=== PATIENT | male | born 1950 | race Caucasian/White ===

== ENCOUNTER 2020-01-07 08:40 | Outpatient (CLI) | payer MEDICARE, OTHER, SELFPAY ==
--- NOTE | ~2020-01-07 | CT_ITS ---
EXAMINATION: CT chest abdomen pelvis w con DATE: 01/07/2020 09:49 INDICATION: Metastatic prostate cancer TECHNIQUE: Transaxial computed tomographic images of the chest, abdomen, and pelvis were obtained aft er the administration of 100 cc of Omnipaque 350 intravenous contrast. The dose-length product (DLP) was 333.36 mGy-cm. Automated exposure control and iterative reconstruction technique were employed. COMPARISON: 07/04/2019 FINDINGS: CHEST CT: There is mild emphysema. The lungs are free of acute opacities. There is no pleural effusion or pneum othorax. No pathologically enlarged thoracic lymph nodes are identified. The heart size is normal. Ca lcified coronary artery atherosclerosis is noted. There are osseous metastases of the right seventh r ib, the inferior tip of the right scapula, the left fourth rib, and the left aspect of the T12 verteb ral body. ABDOMEN/PELVIS CT: There are multiple new ill-defined liver masses scattered throughout the liver. The largest measures 9.9 x 6.8 cm in the liver dome. The spleen, pancreas, and adrenal glands are normal. There are multip le simple and complex cysts of the kidneys. The largest measures 4.5 cm on the left. There is calcifi ed atherosclerosis of the aorta and many of the other arteries. Previously described pelvic lymphaden opathy continues to decrease. For instance, a 3.6 x 1.3 cm right obturator lymph node previously olegario ured 4.3 x 2.7 cm. There is no free intraperitoneal gas or evidence of bowel obstruction. Colonic div erticulosis is present without evidence of diverticulitis. Circumferential bladder wall thickening li alyson reflect chronic outlet obstruction. Osseous metastatic disease of the right ilium, sacrum, and l umbar spine is again seen with worsening in the lumbar spine. IMPRESSION: 1. Worsening osseous metastatic disease. 2. Multiple new masses throughout the liver, consistent with metastatic disease. 3. Continued improvement in pelvic lymphadenopathy. Reviewed, dictated and finalized at location B. IMPRESSION: 1. Worsening osseous metastatic disease. 2. Multiple new masses throughout the liver, consistent with metastatic disease . 3. Continued improvement in pelvic lymphadenopathy.
--- NOTE | ~2020-01-07 | NM_ITS ---
EXAMINATION: NM bone scan whole body DATE: 01/07/2020 13:02 INDICATION: Prostate cancer metastatic to bone. TECHNIQUE: 25.4 mCi Tc-99m HDP was administered intravenously. Delayed whole-body scintigrams were o btained. COMPARISON: CT chest, abdomen, and pelvis 01/07/2020, bone scan 04/19/2019 FINDINGS: There is a total right knee arthroplasty. There is increased activity in multiple lumbar ve rtebral bodies and lower thoracic vertebral bodies. There is increased activity in right parasymphyse al pubis. There is increased activity in right 10th rib. There is increased activity in left fourth r ib. These findings correlate with sclerotic lesions by CT. There is increased activity in proximal le ft femoral diaphysis without radiographic comparison. There has been improvement in the previously se en increased activity in right acetabulum. There is a focus of increased activity in the superior sku ll without radiographic comparison. IMPRESSION: 1. Worsened distribution of bone lesions, consistent with metastatic disease. Reviewed, dictated and finalized at location A.
== END 2020-01-07 08:41 | disposition home or self-care (01) ==
PROVIDERS: PCP Family Medicine; Visit Provider Internal Medicine Hematology & Oncology
DX: C79.51 Secondary malignant neoplasm of bone (principal); R91.8 Other nonspecific abnormal finding of lung field
CPT/HCPCS: 71260; 74177; 78306; A9561; Q9967

== ENCOUNTER 2020-01-27 00:49 | Day surgery (SDC) | payer MEDICARE, OTHER, SELFPAY ==
[2020-01-26 14:34] VITALS: BMI 19.9
--- NOTE | 2020-01-26 18:06 | WPDANESEPP ---
Anes - Eval Pre Procedure Procedure: Operation Date: 01/27/20 07:30 Proposed Procedures p Insertion Leander Cath - Nkechi Acosta MD Date/Time: 01/26/20 18:06 Pre Op Diagnosis: Prostate Ca Patient Data Age: 69 Gender: M Height: 5 ft 8 in Weight: 59.42 kg Allergies Allergy/AdvReac Type Severity Reaction Status Date / Time clopidogrel [From Plavix] Allergy Unknown Rash Verified 01/26/20 14:34 Home Medications Medication Instructions Recorded Confirmed Type aspirin 325 mg PO DAILY 07/16/19 01/26/20 History enzalutamide 120 mg PO DAILY 07/16/19 01/26/20 History pravastatin 80 mg PO HS 07/16/19 01/26/20 History calcium carbonate-vitamin D3 600 1 cap PO BID cap 08/09/19 01/26/20 History mg calcium-200 unit capsule diphenoxylate-atropine 2.5 1 tablet PO TID PRN #45 tablet 10/11/19 01/26/20 Rx mg-0.025 mg tablet metoprolol tartrate 25 mg tablet 25 mg PO BID tablet 10/13/19 01/26/20 History vit C 250 mg-E 200 unit-zinc 40 1 tablet PO BID 10/13/19 01/26/20 History mg-copper 1 tk-bgtwsp-yecozk capsule lisinopril 10 mg tablet 20 mg PO DAILY 11/01/19 01/26/20 History cholestyramine (with sugar) 4 gram 4 g PO BID #60 each 11/18/19 01/26/20 Rx powder for susp in a packet potassium chloride 20 mEq 20 meq PO DAILY 30 Days #30 tablet 12/28/19 01/26/20 Rx tablet,extended release hydrocodone-acetaminophen 1 tablet PO QID PRN 01/26/20 01/26/20 History morphine 15 mg PO HS 01/26/20 01/26/20 History Patient hx anesthesia problems: none Family hx anesthesia problems: none PMFSH Past Medical History Medical History Cancer, metastatic to bone Chronic anemia Coronary artery disease involving [place] coronary artery of [place] heart Decreased appetite Depression Diarrhea Hyperlipidemia Hypertensive heart disease without congestive heart failure Malignant neoplasm of prostate PVD (peripheral vascular disease) Surgical History Surgical History History of cardiac catheterization in 2002 with stents placed S/P total knee arthroplasty right knee S/P TURP October 2016 Family History Family History Father Family history of cardiovascular disease Malignant neoplasm of prostate Mother Family history of cardiovascular disease COPD (chronic obstructive pulmonary disease) CHF (congestive heart failure) Social History Social History Years smoked: 30 Smoking status: Current some day smoker Tobacco type: cigarettes Second hand tobacco smoke exposure: No Additional smoking assessment comments: Smoked approximately 1 pack of cigarettes per week for 30 years previously Alcohol intake: never Substance use: never Substance use type: does not use Additional living arrangements comments: Patient remains a full code. He does live with his daughter and son-in-law. His daughter is his emergency contact. He reports he has not designated an official POA at this point but would like to do so. Gender identity (if verbalized by the patient): Male Spiritual care concerns: No Agree to blood products: No Exam Day of Procedure 01/26/20 18:06
--- NOTE | ~2020-01-27 | XR_ITS ---
EXAMINATION: XR fl guide central line place DATE: 01/27/2020 08:19 INDICATION: Port placement. TECHNIQUE: 2 intraoperative fluoroscopic views of the chest were obtained. I was not present. Fluoros copy exposure time was 12 seconds. COMPARISON: Chest CT 01/07/2020 FINDINGS: There is a left subclavian port with tip at superior cavoatrial junction. No pneumothorax. IMPRESSION: 1. Port tip at superior cavoatrial junction. Reviewed, dictated and finalized at location A.
--- NOTE | ~2020-01-27 | XR_ITS ---
EXAMINATION: XR chest port-a-cath/central DATE: 01/27/2020 08:38 INDICATION: Port placement. TECHNIQUE: A single frontal view of the chest was obtained. COMPARISON: Chest single view 08/30/2019, chest CT 01/07/2020 FINDINGS: The chest demonstrates clear lungs without pneumonia, pleural effusion, or pneumothorax. Th e heart size is normal. A 12 mm nodule overlying right lower lung zone correlates with an exophytic s kin lesion by CT. There is a left subclavian port with tip in superior vena cava. There is deviation of the catheter between the clavicle and first rib. IMPRESSION: 1. Port tip in superior vena cava. No pneumothorax. Reviewed, dictated and finalized at location A.
[2020-01-27] MEDS: LACTATED RINGERS 1,000 ML 30 ML IV CONT (06:30)
[2020-01-27 06:38] VITALS: BP 139/66; PULSE 62; RESP 18; TEMP 36.2; O2SAT 100
[2020-01-27 06:52] LABS: INR 1.1; Prothrombin Time 13.7 Seconds (11.1-14.7)
[2020-01-27 06:53] LABS: Partial Thromboplastin Time 41.4 SECONDS (22.3-36.8)
--- NOTE | 2020-01-27 07:04 | WPDANESEFPP ---
Anes - Eval Final PreProcedure Day of Procedure 01/27/20 07:04 Patient weight: normal Heart: regular rate and rhythm Lungs: decreased breath sounds Airway: Mallampati scale class II Neurological: alert and oriented Last oral intake: >/= 8 hours ASA classification: IV Emergent: no Anesthetic plan: proceed Anesthesia type and monitoring: general GIVS and standard monitoring Informed Consent: The patient's anesthetic plan and its attendant risks and benefits were discussed with the patient/family/POA. Questions were solicited and answers provided to the satisfaction of the patient/family/POA.
--- NOTE | 2020-01-27 07:23 | PM.IMHP ---
H&P: HPI History of Present Illness Chief complaint: Prostate Ca Narrative: Urbano Guerra is a 69 year old male presenting for placement of port. Pt reports he is having port placed for chemotherapy due to prostate cancer. Pt denies having central venous catherterization in the past. Pt is R handed. Review of Systems Constitutional: Constitutional: Denies chills, Reports fatigue, Reports lethargy and Reports weakness Eyes: Eyes: Reports no additional eye complaints and Denies change in vision ENT: Reports Normal hearing present, Denies dysphagia, Denies headache(s), Denies hearing loss and Denies sore throat Cardiovascular: Cardiovascular: Denies chest pain, Denies palpitations and Denies dyspnea Respiratory: Respiratory: Denies cough and Denies dyspnea Gastrointestinal: Gastrointestinal: Denies abdominal pain, Denies change in stool character, Denies constipation, Denies diarrhea, Denies nausea and Denies vomiting Genitourinary: Genitourinary: Denies dysuria, Denies urinary frequency and Denies urinary urgency Musculoskeletal: Musculoskeletal: Reports no additional musculoskeletal complaints Integumentary/Breasts: Skin/Breast: Denies pruritus, Denies lesions and Denies wounds Neurologic: Denies confusion and Denies headache(s) Psychiatric: Psychiatric: Reports no additional psychiatric complaints and Denies confusion Endocrine: Endocrine: Reports no additional endocrine complaints, Denies fatigue and Denies palpitations Hematologic/Lymphatic: Hematologic/Lymphatic: Reports no additional hematologic/lymphatic complaints Allergic/Immunologic: Allergic/Immunologic: Reports no additional allergic/immunologic complaints PMFSH Past Medical History Medical History Cancer, metastatic to bone Chronic anemia Coronary artery disease involving [place] coronary artery of [place] heart Decreased appetite Depression Diarrhea Hyperlipidemia Hypertensive heart disease without congestive heart failure Malignant neoplasm of prostate PVD (peripheral vascular disease) Surgical History Surgical History History of cardiac catheterization in 2002 with stents placed S/P total knee arthroplasty right knee S/P TURP October 2016 Family History Family History Father Family history of cardiovascular disease Malignant neoplasm of prostate Mother Family history of cardiovascular disease COPD (chronic obstructive pulmonary disease) CHF (congestive heart failure) Social History Social History Years smoked: 30 Smoking status: Current some day smoker Tobacco type: cigarettes Second hand tobacco smoke exposure: No Additional smoking assessment comments: Smoked approximately 1 pack of cigarettes per week for 30 years previously Alcohol intake: never Substance use: never Substance use type: does not use Additional living arrangements comments: Patient remains a full code. He does live with his daughter and son-in-law. His daughter is his emergency contact. He reports he has not designated an official POA at this point but would like to do so. Gender identity (if verbalized by the patient): Male Spiritual care concerns: No Agree to blood products: No Meds Home Medications and Allergies Home Medications Medication Instructions Recorded Confirmed Type aspirin 325 mg PO DAILY 07/16/19 01/27/20 History enzalutamide 120 mg PO DAILY 07/16/19 01/27/20 History pravastatin 80 mg PO HS 07/16/19 01/27/20 History calcium carbonate-vitamin D3 600 1 cap PO BID cap 08/09/19 01/27/20 History mg calcium-200 unit capsule diphenoxylate-atropine 2.5 1 tablet PO TID PRN #45 tablet 10/11/19 01/27/20 Rx mg-0.025 mg tablet metoprolol tartrate 25 mg tablet 25 mg PO BID tablet 10/13/19 01/27/20 History
[2020-01-27] MEDS: HEPARIN SODIUM, PORCINE 10,000 UNITS/10 ML VIAL 4000 UNITS IV PUSH (07:39)
[2020-01-27] MEDS: ceFAZolin 2 GM/D5W 50 ML 2 GM/50 ML BAG IVPB (07:39)
[2020-01-27] MEDS: HEPARIN SODIUM 5,000 UNITS/ML VIAL 5000 UNITS IRRIGATION (07:39)
[2020-01-27] MEDS: BUPIVACAINE/EPINEPHRINE 0.5% 30 ML VIAL 20 ML INFILTRATE (07:39)
--- NOTE | 2020-01-27 08:17 | PM.PROC ---
Procedure Note - Detailed Date of procedure: 01/27/20 Pre-op diagnosis: Prostate Ca Post-op diagnosis: same Procedure performed: placement of left subclavian venous access device under fluroscopic guidance Description of procedure: Patient was brought into the operating room and placed in the supine position. After adequate induction of mac anesthesia, the patient was prepped and draped in normal sterile fashion. Time-out was then done to verify the patient's identity, as well as the procedure being performed. I began by making a small incision in the left chest, I then gained access into the left subclavian vein with an 18 gauge needle. I then placed the guidewire into the vein and confirmed placement via fluoroscopic guidance. I then locally anesthetized the area in the left chest. I then enlarged the incision around the guidewire including making a subcutaneous pocket inferiorly to allow placement of the port itself. I then placed a dilating sheath over the guidewire into the left subclavian vein via sterile Seldinger technique. This was once again done and confirmed via fluoroscopic guidance. I then removed the dilator and the guidewire, now just leaving the sheath in the vein. I then fed the previously flushed catheter into the left subclavian vein under fluoroscopic guidance. At approximately 20 cm, the catheter was noted to be near the atrial caval junction. I then peeled away the sheath, now just leaving the catheter in the vein. I then was able to easily draw and flush from the catheter. The catheter was cut to fit and attached to the port itself. The port was placed into the previously made subcutaneous pocket and sutured in with 0 Ethibond suture. Final fluoroscopic view showed the termination of the catheter at the atrial caval junction with a nice smooth curvature back to the port itself. I was able to gain access to the port with a Bush needle and was able to easily draw and flush from the port. I then flushed 4 cc of a final heparin flush into the port. The incision was closed with 3 0 Vicryl suture in the subcutaneous tissue and the skin was closed with 4 O Monocryl subcuticular suture. Dermabond was then placed on wound. The patient tolerated the procedure well and will be sent to the recovery room in stable condition. Implants: L SCV VAD Anesthesia: MAC and local Surgeon: Nkechi Acosta MD Estimated blood loss (mL): 5 Drains: No Packing: No Pathology: none sent Complications: No immediate complications Condition: stable Disposition: PACU Findings: placement of L SCV VAD via 1st stick
--- NOTE | 2020-01-27 08:18 | SUR.OPER ---
EBL:10cc
[2020-01-27 08:23] VITALS: BP 165/64; PULSE 67; RESP 18; TEMP 36.4; O2SAT 100
[2020-01-27 08:53] VITALS: BP 156/67; PULSE 67; RESP 18; O2SAT 99
[2020-01-27 09:23] VITALS: BP 156/60; PULSE 65; RESP 18
== END 2020-01-27 09:37 | disposition home or self-care (01) ==
PROVIDERS: PCP Family Medicine; Visit Provider Surgery
PROC: (CPT 36561; principal; 2020-01-27 07:30)
DX: C61 Malignant neoplasm of prostate (principal); C79.51 Secondary malignant neoplasm of bone; I25.10 Atherosclerotic heart disease of native coronary artery without angina pectoris; E78.5 Hyperlipidemia, unspecified; I73.9 Peripheral vascular disease, unspecified; D64.9 Anemia, unspecified; F32.9 Major depressive disorder, single episode, unspecified; Z95.5 Presence of coronary angioplasty implant and graft; Z79.82 Long term (current) use of aspirin; F17.210 Nicotine dependence, cigarettes, uncomplicated
CPT/HCPCS: 36561; 36415; 77001; 85610; 85730; C1788; J0690; J1644; J2250; J2704; J3010; J7030; J7120

== ENCOUNTER 2020-04-29 14:44 | Inpatient (IN) | payer MEDICARE, OTHER, SELFPAY ==
--- NOTE | ~2020-04-29 | XR_ITS ---
XR chest 1V portable 04/29/2020 15:25 Indication: History of hypertension. Coronary artery disease. Procedure: AP portable chest Comparison: 07/05/2019 Findings: Portacatheter tip in the SVC. Heart size normal. No focal air space disease, pulmonary you a, pleural effusion or suspected pneumothorax. Impression: 1: No acute cardiopulmonary disease. Reviewed, dictated and finalized at location A. Impression: 1: No acute cardiopulmonary disease.
--- NOTE | ~2020-04-29 | CT_ITS ---
EXAMINATION: CT abdomen pelvis wo con DATE: 05/06/2020 10:22 INDICATION: Hypotension. Right-sided abdominal pain. TECHNIQUE: Computed tomography (CT) of the abdomen and pelvis was performed without intravenous contr ast. The dose-length product was 415.31 mGy-cm. Automated exposure control and iterative reconstructi on technique were employed. COMPARISON: CT dated 01/07/2020 FINDINGS: Right lower lobe atelectasis. No significant pleural or pericardial effusion. Heart size no rmal. There are multiple ill-defined liver masses, consistent with metastatic disease. There is ascit es throughout the abdomen and pelvis. Nonobstructive bowel gas pattern. There are low-density lesions in the kidneys, most likely cysts. There is atherosclerosis. There is abdominal aortic ectasia aorta measuring 2.8 cm greatest AP dimension. Gallbladder is present. No free air identified. There is pat zackary extensive sclerosis throughout the visualized osseous structures, compatible with metastatic dise ase. There is retroperitoneal lymphadenopathy, likely metastatic disease. IMPRESSION: 1. Extensive liver metastases. Interval change difficult to evaluate due to lack of contrast. 2: Widespread osseous metastases. 3: Interval development of ascites and diffuse subcutaneous edema, consistent with anasarca. 4: Retroperitoneal lymphadenopathy, likely metastatic disease. Reviewed, dictated and finalized at location I. IMPRESSION: 1. Extensive liver metastases. Interval change difficult to evaluate due to lac k of contrast. 2: Widespread osseous metastases. 3: Interval development of ascites and diffuse subcutaneous edema, consistent w ith anasarca. 4: Retroperitoneal lymphadenopathy, likely metastatic disease.
--- NOTE | ~2020-04-29 | US_ITS ---
EXAMINATION: US venous doppler LE EXAM DATE: 05/02/2020 16:20 INDICATION: Bilateral leg swelling. TECHNIQUE: Multiple grayscale, color flow and Doppler images of the lower extremity deep venous syste ms bilaterally were obtained and reviewed. Comparison is made to prior examination from 11/12/2018. FINDINGS: Right side: The right common femoral, femoral and profunda veins demonstrate normal color flow, respi ratory variation, augmentation and compressibility. Compressibility, color flow confirmed within the right popliteal, posterior tibial, peroneal, and greater saphenous veins. Left side: The left common femoral, femoral and profunda veins demonstrate normal color flow, respira tory variation, augmentation and compressibility. Compressibility, color flow confirmed within the l eft popliteal, posterior tibial, peroneal, and greater saphenous veins. IMPRESSION: 1. No lower extremity deep venous thrombosis bilaterally. Reviewed, dictated and finalized at location A.
--- NOTE | ~2020-04-29 | XR_ITS ---
EXAMINATION: XR chest 1V portable DATE: 05/07/2020 11:25 INDICATION: Decreased breath sounds. Sepsis. TECHNIQUE: frontal view of the chest was obtained. COMPARISON: Chest radiograph dated 04/29/2020 FINDINGS: Mild elevation of the right hemidiaphragm. The lungs remain clear with no focal airspace opacities, p ulmonary edema, pleural effusion or pneumothorax. The cardiomediastinal silhouette is normal. Left branch bclavian central venous port catheter with distal tip at the caudal superior vena cava. There is a sl ight change in course of the catheter were passed between the clavicle and first rib but without evid ent flattening or sharp angulation of the catheter. IMPRESSION: 1. No acute cardiopulmonary disease. Reviewed, dictated and finalized at location A.
--- NOTE | ~2020-04-29 | US_ITS ---
EXAMINATION: US arterial duplex LE DATE: 05/05/2020 11:32 INDICATION: Severe peripheral vascular disease TECHNIQUE: Multiple grayscale and Doppler ultrasound images of the region of the bilateral lower lowe r limbs were obtained. COMPARISON: None FINDINGS: In the right lower limb there are monophasic waveforms with brisk systolic upstrokes in the right com mon femoral, profunda femoral, superficial femoral, popliteal and posterior tibial arteries. There is scattered nonhemodynamically significant atherosclerotic plaque throughout the arteries of the right lower limb but with no significant stenosis either directly visualized by grayscale imaging or by si gnificant localized peak systolic velocity elevation or decrease to suggest hemodynamically significa nt stenosis. The anterior tibial artery is not visualized however is likely occluded as there is reve rsal of flow in the right dorsalis pedis artery. Subcutaneous edema seen at the right calf. The left lower limb there are triphasic waveforms in the left common femoral, profunda femoral arteri es with monophasic waveforms more distally with brisk systolic upstrokes throughout dorsalis pedis ar sriram. Similarly there is extensive scattered atherosclerotic plaque which does not appear hemodynamic ally significant either by grayscale or color Doppler velocity criteria. Subcutaneous edema seen at t he left calf. Cardiac arrhythmia is present with occasional dropped beats suggestive of some degree of heart block. IMPRESSION: 1. Extensive scattered atherosclerotic plaque throughout the arteries of both the left and right lowe r limbs with reversal of flow in the right dorsalis pedis arteries suggesting occlusion of the more p roximal nonvisualized right anterior tibial artery. 2. No other hemodynamically significant stenosis in the visualized arteries of either lower limb eith er by direct grayscale visualization or as evidenced by significant focal elevation or decrease in pe ak systolic velocities. Reviewed, dictated and finalized at location A. IMPRESSION: 1. Extensive scattered atherosclerotic plaque throughout the arteries of both t he left and right lower limbs with reversal of flow in the right dorsalis pedis arteries suggesting occlusion of the more proximal nonvisualized right anterio r tibial artery. 2. No other hemodynamically significant stenosis in the visualized arteries of either lower limb either by direct grayscale visualization or as evidenced by s ignificant focal elevation or decrease in peak systolic velocities.
[2020-04-29 14:50] VITALS: BP 125/52; PULSE 75; RESP 12; TEMP 36.2; O2SAT 99
--- NOTE | 2020-04-29 14:59 | ED.GENADULT ---
HPI - General Adult General Chief complaint: Unspecified Stated complaint: swollen feet Time Seen by Provider: 04/29/20 14:47 History of Present Illness HPI narrative: 69 yo male w/ h/o stage prostate cancer presents for lower extremitiy swelling. He has had increasing swelling in the feet bilaterally for several days. As the swelling has increased his feet have become very painful and started weeping. He now has areas of skin sloughing and significant drainage. He was started on PO diuretics, but they have had little effect. He is not currently getting any treatment for the cancer. Related Data Home Medications Medication Instructions Recorded Confirmed aspirin 325 mg PO DAILY 07/16/19 04/12/20 pravastatin 80 mg PO HS 07/16/19 04/12/20 calcium carbonate-vitamin D3 600 1 cap PO TID cap 08/09/19 04/12/20 mg calcium-200 unit capsule metoprolol tartrate 25 mg tablet 25 mg PO BID tablet 10/13/19 04/12/20 vit C 250 mg-E 200 unit-zinc 40 1 tablet PO BID 10/13/19 04/12/20 mg-copper 1 vt-yhpywp-nzcfur capsule lisinopril 10 mg tablet 20 mg PO DAILY 11/01/19 04/12/20 hydrocodone-acetaminophen 1 tablet PO QID PRN 01/26/20 04/12/20 morphine 15 mg PO HS 01/26/20 04/12/20 ferrous sulfate 324 mg PO DAILY 03/14/20 04/12/20 Allergies Allergy/AdvReac Type Severity Reaction Status Date / Time clopidogrel [From Plavix] Allergy Unknown Rash Verified 04/29/20 14:55 Review of Systems Review of Systems: All systems reviewed & are unremarkable except as noted in HPI and below Constitutional: Constitutional: Denies fever(s) Cardiovascular: Cardiovascular: Denies chest pain Respiratory: Respiratory: Denies dyspnea Gastrointestinal: Gastrointestinal: Denies abdominal pain, Denies nausea and Denies vomiting Genitourinary: Genitourinary: Denies dysuria Neurologic: Denies numbness and Reports weakness PMFSH Past Medical History Medical History Cancer, metastatic to bone Chronic anemia Coronary artery disease involving [place] coronary artery of [place] heart Decreased appetite Depression Diarrhea Hyperlipidemia Hypertensive heart disease without congestive heart failure Malignant neoplasm of prostate PVD (peripheral vascular disease) Surgical History Surgical History History of cardiac catheterization in 2002 with stents placed S/P total knee arthroplasty right knee S/P TURP October 2016 Family History Family History Father Family history of cardiovascular disease Malignant neoplasm of prostate Mother Family history of cardiovascular disease COPD (chronic obstructive pulmonary disease) CHF (congestive heart failure) Social History Social History Years smoked: 30 Smoking status: Current some day smoker Tobacco type: cigarettes Second hand tobacco smoke exposure: No Additional smoking assessment comments: Smoked approximately 1 pack of cigarettes per week for 30 years previously Alcohol intake: never Substance use: never Substance use type: does not use Additional living arrangements comments: Patient remains a full code. He does live with his daughter and son-in-law. His daughter is his emergency contact. He reports he has not designated an official POA at this point but would like to do so. Gender identity (if verbalized by the patient): Male Spiritual care concerns: No Agree to blood products: No Exam Const: General: no acute distress, alert and ill appearing chronically Orientation/consciousness: patient oriented x3 Other: chacectic HENMT: Head: normal to inspection Neck: Neck: normal visual inspection and no lymphadenopathy Chest: Chest palpation & inspection: no tenderness Resp: Effort & Inspection: normal respiratory effort Auscultation:
[2020-04-29 15:13] LABS: Basophils Percent Auto 0.1 % (0.2-1.2); Eosinophils Percent Auto 0.1 % (0-4.4); Hemoglobin 10.5 g/dL (14.0-18.0); Immature Granulocyte Absolute 0.09 K/mm3 (0.00-0.031); Immature Granulocyte Percent A 0.6 % (0-0.5); Lymphocytes Absolute Auto 0.61 K/mm3 (0.9-3.2); Lymphocytes Percent Auto 4.3 % (18.3-44.2); Mean Corpuscular HGB Conc 30.9 g/dl (32-36); Mean Corpuscular Hemoglobin 27.1 pg (26-34); Mean Corpuscular Volume 87.9 fl (80-100); Mean Platelet Volume 10.8 fl (7.4-10.4); Monocytes Absolute Auto 0.5 K/mm3 (0.1-0.6); Monocytes Percent Auto 3.8 % (2.6-8.5); Neutrophils Absolute Auto 12.9 K/mm3 (1.3-6.7); Neutrophils Percent Auto 91.1 % (45.5-73.1); Platelet Count Result 430 k/mm3 (150-375); Red Blood Count 3.87 M/mm3 (4.6-6.20); Red Cell Distribution Width 21.2 % (11.5-14.5); White Blood Count 14.2 K/mm3 (4.5-10.0)
[2020-04-29 15:22] LABS: INR 1.3; Prothrombin Time 15.8 Seconds (11.1-14.7)
[2020-04-29 15:23] LABS: Partial Thromboplastin Time 30.9 SECONDS (22.3-36.8)
[2020-04-29 15:29] LABS: Alanine Aminotransferase 24 U/L (4-50); Albumin Level 3.3 g/dL (3.5-5.1); Alkaline Phosphatase 617 U/L (38-126); Anion Gap 14.3 mmol/L (7-16); Aspartate Amino Transferase 32 U/L (17-59); Bilirubin,Total 0.5 mg/dL (0.2-1.3); Blood Urea Nitrogen 31 mg/dL (9-20); CRP 6.2 mg/dL (<1.0); Calcium 8.4 mg/dL (8.4-10.2); Carbon Dioxide 24 mmol/L (22-30); Chloride 101 mmol/L (98-107); Estimated CRCL calculation 48 ml/min; Estimated Glomerular Filt Rate > 60; Glucose 101 mg/dL (75-110); Potassium 3.3 mmol/L (3.4-5.0); Sodium 136 mmol/L (137-145)
[2020-04-29] MEDS: FUROSEMIDE INJ 40 MG/4 ML VIAL IV PUSH ×2 (15:31→20:34)
[2020-04-29 15:34] LABS: NT Pro B Type Natriuretic Pept 2700 PG/ML (5-100)
[2020-04-29] MEDS: MORPHINE SULFATE 4 MG/ML INJ IV PUSH ×3 (15:43→20:33)
[2020-04-29 17:07] LABS: Lactic Acid Reflex 2.4 mmol/L (0.7-2.1)
--- NOTE | 2020-04-29 17:07 | PC.NURSE ---
Patient's leg repositioned and chucks pad change per request of daughter due to saturation of pad. Patient's leg gently washed with saline irrigation fluid and patted dry. Patient turned onto left hip at this time
[2020-04-29 17:09] VITALS: BP 121/50; PULSE 72; O2SAT 98
--- NOTE | 2020-04-29 18:05 | PC.NURSE ---
This patient, Urbano Guerra, was admitted to [facility] Surg Room 311-01. Patient/family oriented to hospital policies and general routines including ID bracelet, bed and alarms, visiting hours, pain management, procedures, bathroom and other care routines, personal items, smoking policy, room service/diet, and visiting hours. Valuables list has been completed. Information on how to activate the Rapid Response Team has been discussed. Patient/Family are encouraged to report perceived risks to care and to ask questions if they do not understand what they are told or what they should do.
[2020-04-29 18:27] VITALS: BMI 18.8
[2020-04-29 19:14] VITALS: BP 98/51; PULSE 66; RESP 18; TEMP 36.4; O2SAT 98
[2020-04-29 19:54] LABS: Reflex Lactic Acid Yes or No Add Lactic
[2020-04-29 20:25] LABS: Lactic Acid 1.9 mmol/L (0.7-2.1)
[2020-04-29 22:00] VITALS: BP 126/69; PULSE 60; RESP 16; TEMP 36.2; O2SAT 96
--- NOTE | 2020-04-29 23:51 | PM.IMHP ---
H&P: HPI History of Present Illness Date/Time: 04/29/20 23:51 Chief complaint: Lower extremity cellulitis/lower extremity edema Narrative: Urbano Guerra is a 69 year old male Who has a history of stage IV prostate cancer that metastasized to the lymph nodes the liver and the bones. The patient was getting politics radiation but is stop that. He sees Dr. santo for his oncology needs. The patient had been on chemotherapy but became very weak and could not tolerate the chemotherapy. The patient's chemotherapy is on hold at this time and patient may start up on a lower dose chemotherapy. The ER physician did evaluate the patient and noted that the patient had a blue purple color to his left lower foot. Patient has severe edema to lower extremities which the patient stated started about 1 week ago. The patient had been on prednisone which could cause the patient to retain water. The patient was diagnosed with localized prostate cancer October 2015 status post of a TURP and watchful waiting. Patient also has B12 deficiency iron deficiency and anemia from chemotherapy. The patient had been on Taxotere that started February 01, 2020 but has been fatigued and could not tolerate that dose. He had polyp to have radiation therapy to the bone that he completed on June 24, 2019. He also had been on androgen deprivation therapy with Casodex December 01, 2018. The patient had a right inguinal lymph node ultrasound-guided biopsy done that showed metastatic cancer patient had been started on Xtandi and discontinued January 30 of this year. Lupron was discontinued January 04, 2020. Patient has increased pain and has been taking Grover for the discomfort. We had a very long discussion about the bluish color to the left foot. The patient stated that he had arterial Dopplers in the past and he is aware that he has some arterial insufficiency. We had to Doppler his pulses his left foot is cold to touch and very difficult to find a a pulse even with the Dopplers. The patient will not allow me to do any venous or arterial Dopplers. He was made aware that he is at risk for DVTs since he has cancer. Patient is in a lot of pain in just once his pain medication and is not concerned about his foot at this time. I explained that he could have some vasculitis. The patient stated that he was told that he has an infection is foot and that antibiotics will get rid of this. Patient is not wanting to be transferred to another facility where they have a vascular surgeon. He is refusing any further vascular Dopplers. He does not want any arterial venous Dopplers performed at this time. We could do a D-dimer but it will be elevated most likely due to his cancer. The last time he was seen by his oncologist was 04/12/2020. Under the skin assessment there was no lumps bumps or rashes noted at that time. There was no note of any edema or lymphedema or lymphadenopathy at that time. The patient tells me that this swelling just got worse about 1 week ago. He thinks that is about the time he was started on steroids. I have spent over an hour with this gentleman explaining code status and the condition of his left foot. The patient does not want to be transferred to vascular surgeon at this time the night. Explained that it would be his best interest to be evaluated for his vascular system. However the patient does have metastatic cancer and states that it may not be worth it to have a workup on his vascular system. However we discussed code status and his daughter is the durable power employee benefits attorney for healthcare. And he would want us to fully resuscitate him if his heart stops. He stated that he wanted to try the antibiotics any feels this is just infection. I explained to the patient that he has some arterial possibly venous insufficiency and that he could possibly lose his toes or his foot due to loss of circulation. The patient stated that he is fully aware and does not want any further workup on his
[2020-04-30] MEDS: MORPHINE SULFATE 4 MG/ML INJ IV PUSH ×4 (04:34→17:25)
[2020-04-30 06:00] VITALS: BP 119/60; PULSE 60; RESP 18; TEMP 36.1; O2SAT 91
[2020-04-30] MEDS: ENOXAPARIN 40 MG/0.4 ML SYRINGE SUB-Q (08:18)
[2020-04-30] MEDS: FERROUS SULFATE 324 MG TABLET PO (08:20)
[2020-04-30] MEDS: ASPIRIN 325 MG TABLET PO (08:20)
[2020-04-30] MEDS: POTASSIUM CHLORIDE 20 MEQ TABLET.ER PO (08:20)
[2020-04-30] MEDS: lisinopriL 20 MG TABLET PO (08:20)
[2020-04-30 08:21] VITALS: PULSE 64
[2020-04-30] MEDS: METOPROLOL TARTRATE 25 MG TABLET PO ×2 (08:21→17:20)
[2020-04-30] MEDS: POTASSIUM CHLORIDE 20 MEQ TABLET 40 MEQ PO (12:04)
[2020-04-30 14:00] VITALS: BP 126/74; PULSE 69; RESP 18; TEMP 36.7; O2SAT 100
--- NOTE | 2020-04-30 16:27 | PM.IMPN ---
Progress Note: A&P Assessment and Plan (1) Cellulitis of leg: Qualifiers: Laterality: unspecified laterality Qualified Code(s): L03.119 - Cellulitis of unspecified part of limb Code(s): L03.119 - Cellulitis of unspecified part of limb Status: Acute Assessment and Plan: Patient had a white count so the ER physician stated that the patient had an infection to his lower extremities. the patient was started on Ancef. To me this looks more like vasculitis. explained to the patient that this was probably more vasculitis and increased his steroids.. He has not had any fever also the patient has vascular problems and he is aware of this. He stated he had arterial Dopplers in the past and he is aware that he has some arterial occlusion. we had a very long discussion of the patient is refusing any type of arterial or venous Dopplers at this time. Patient is aware that he could possibly have a DVT with his cancer. The patient stated that he just needed the antibiotics and that it would get better. Will have seen by Dr Sorenson also (2) Arterial insufficiency: Code(s): I77.1 - Stricture of artery Status: Chronic Assessment and Plan: explained to the patient that we do not have a vascular surgeon here he did not want any further studies at this time. (3) Bilateral lower extremity edema: Code(s): R60.0 - Localized edema Status: Acute Assessment and Plan: Patient was given diuretics which appeared to help somewhat. Patient could be retaining fluid from the steroids. but they are discontinued today with rising creatinine (4) Anemia: Code(s): D64.9 - Anemia, unspecified Status: Acute Assessment and Plan: Could be chemo induced, could be iron deficiency anemia could be B12. It looks like he is on ferrous sulfate and B12. (5) Hypertensive heart disease without congestive heart failure: Code(s): I11.9 - Hypertensive heart disease without heart failure Status: Acute Assessment and Plan: Continue low-dose metoprolol but change lisinopril to amlodipine for possible further arterial dilatation and with rising creatinine (6) Hyperlipidemia: Qualifiers: Hyperlipidemia type: unspecified Qualified Code(s): E78.5 - Hyperlipidemia, unspecified Code(s): E78.5 - Hyperlipidemia, unspecified Status: Acute Assessment and Plan: Patient is on pravastatin. (7) Acute hypokalemia: Code(s): E87.6 - Hypokalemia Status: Acute Assessment and Plan: patient is on daily potassium replace as necessary. (8) Cancer, metastatic to bone: Code(s): C79.51 - Secondary malignant neoplasm of bone Status: Chronic Assessment and Plan: I continued with his pain medication. Patient had radiation induced diarrhea at 1 time. He has p.r.n. anti diarrheal medications. Subjective Date/time seen: 04/30/20 16:27 Interval history: Date of visit 04/30. 69-year-old hypertensive white male with metastatic prostate carcinoma presented with the some painful swollen left foot. Emergency room physician felt he had cellulitis but on evaluation but the hospitalist team he was found to have peripheral vascular disease and probable vasculitis' received IV Lasix and antibiotics and patient feels like it is slightly improved as far as swelling. main complaint is his back pain from his prostate CA. He has had no fever no chills Exam Narrative: Exam Narrative: blood pressure 126/74 pulse is 70 saturating 100% on room air afebrile lungs clear CV regular rate rhythm abdomen soft nontender extremities left foot is slightly erythematous and warm with bluish discoloration of his tops of his toe was which are cool cannot palpate dorsalis pedis or posterior tibial, there is an open area of denuded skin that is clean on the anterior surface of the left foot right foot no areas of ischemia but still
[2020-04-30] MEDS: predniSONE 20 MG TABLET 40 MG PO (17:19)
[2020-04-30 17:20] VITALS: PULSE 60
[2020-04-30 22:00] VITALS: BP 117/60; PULSE 81; RESP 16; TEMP 37.2; O2SAT 92
[2020-04-30] MEDS: PRAVASTATIN SODIUM 20 MG TABLET 80 MG PO (22:05)
[2020-05-01] MEDS: MORPHINE SULFATE 4 MG/ML INJ IV PUSH ×2 (02:12→20:26)
[2020-05-01 06:00] VITALS: BP 116/67; PULSE 65; RESP 16; TEMP 36.4; O2SAT 91
[2020-05-01 06:15] LABS: Basophils Percent Auto 0.1 % (0.2-1.2); Hematocrit 29.2 % (42.0-52.0); Hemoglobin 9.1 g/dL (14.0-18.0); Immature Granulocyte Absolute 0.09 K/mm3 (0.00-0.031); Immature Granulocyte Percent A 0.7 % (0-0.5); Lymphocytes Absolute Auto 0.32 K/mm3 (0.9-3.2); Lymphocytes Percent Auto 2.3 % (18.3-44.2); Mean Corpuscular HGB Conc 31.2 g/dl (32-36); Mean Corpuscular Hemoglobin 27.3 pg (26-34); Mean Corpuscular Volume 87.7 fl (80-100); Monocytes Absolute Auto 0.3 K/mm3 (0.1-0.6); Monocytes Percent Auto 2.5 % (2.6-8.5); Neutrophils Percent Auto 94.4 % (45.5-73.1); Platelet Count Result 283 k/mm3 (150-375); Red Blood Count 3.33 M/mm3 (4.6-6.20); White Blood Count 13.8 K/mm3 (4.5-10.0)
[2020-05-01 06:23] LABS: Anion Gap 12.1 mmol/L (7-16); Blood Urea Nitrogen 31 mg/dL (9-20); Calcium 7.7 mg/dL (8.4-10.2); Carbon Dioxide 26 mmol/L (22-30); Chloride 103 mmol/L (98-107); Estimated CRCL calculation 61 ml/min; Estimated Glomerular Filt Rate > 60; Glucose 105 mg/dL (75-110); Potassium 4.1 mmol/L (3.4-5.0); Sodium 137 mmol/L (137-145)
[2020-05-01 07:01] LABS: Erythrocyte Sedimentation Rate 45 mm/hr (0-20)
[2020-05-01] MEDS: ENOXAPARIN 40 MG/0.4 ML SYRINGE SUB-Q (10:03)
[2020-05-01] MEDS: POTASSIUM CHLORIDE 20 MEQ TABLET.ER PO (10:04)
[2020-05-01] MEDS: predniSONE 20 MG TABLET 40 MG PO (10:07)
[2020-05-01] MEDS: amLODIPine BESYLATE 5 MG TABLET PO (10:07)
[2020-05-01] MEDS: ASPIRIN 325 MG TABLET PO (10:07)
[2020-05-01 10:08] VITALS: PULSE 76
[2020-05-01] MEDS: FERROUS SULFATE 324 MG TABLET PO (10:08)
[2020-05-01] MEDS: METOPROLOL TARTRATE 25 MG TABLET PO ×2 (10:08→17:59)
[2020-05-01 14:00] VITALS: BP 94/50; PULSE 54; RESP 16; TEMP 36.9; O2SAT 100
--- NOTE | 2020-05-01 16:50 | PDONCCN ---
HPI - Date of Consult Date/Time: 05/01/20 16:50 Requesting Physician: Micaela Chino MD Primary Care Provider: Justino Perez MD - Consult Narrative Reason for consult: Metastatic prostate cancer Narrative: Urbano Guerra is a 69 year old male This is the pleasant 69-year-old male with metastatic prostate cancer with bone metastasis and retroperitoneal lymphadenopathy diagnosed in November 2018. Initially was diagnosed with localized prostate cancer in October of 2015 status post TURP. He was on chemotherapy with Taxotere which was discontinued due to poor tolerance and bilateral lower extremity edema almost a month ago. Prior to that he was on Xtandi and Zytiga discontinued due to progressive disease. He now came into the hospital with worsening bilateral lower extremity edema and cellulitis. He was put on Lasix with increase does without much relief. He has been feeling poor early with poor appetite and has lost weight as well. He denies any fevers and chills. Denies any diarrhea. Complain of tiredness and fatigue. He was complaining of purplish discoloration of the toes with pain. Review of Systems - Review of Systems All systems reviewed & are unremarkable except as noted in HPI and bel - Neurologic Reports system reviewed and no additional complaints, except as documented, Reports hearing normal, Reports weakness, Denies numbness PMFSH Medical History: Medical History (Last Reviewed 05/01/20 @ 16:54 by Aravind Sorenson MD) Arterial insufficiency Cancer, metastatic to bone Chronic anemia Coronary artery disease involving [place] coronary artery of [place] heart Decreased appetite Depression Diarrhea Hyperlipidemia Hypertensive heart disease without congestive heart failure Malignant neoplasm of prostate PVD (peripheral vascular disease) Surgical History: Surgical History (Last Reviewed 05/01/20 @ 16:54 by Aravind Sorenson MD) History of cardiac catheterization in 2002 with stents placed S/P total knee arthroplasty right knee S/P TURP October 2016 Family History: Family History (Last Reviewed 05/01/20 @ 16:54 by Aravind Sorenson MD) Father Family history of cardiovascular disease Malignant neoplasm of prostate Mother Family history of cardiovascular disease COPD (chronic obstructive pulmonary disease) CHF (congestive heart failure) - Social History Social History: Social History (Last Reviewed 05/01/20 @ 16:54 by Aravind Sorenson MD) Gender Identity: Gender identity (if verbalized by the patient): Male Alcohol Use: Alcohol intake: never Substance Use: Substance use: current Substance use type: marijuana, prescription drug Others: Spiritual care concerns: No Agree to blood products: No Oppucation/Education: Occupation/Education: retired Smoking Status: Smoking status: Current every day smoker Tobacco type: cigarettes Second hand tobacco smoke exposure: No Smoking Pack-years: Smoking packs per day: 0.5 Smoking cigarettes per day: 10.0 Years smoked: 30 Smoking pack-years: 15.00 Comments: Additional smoking assessment comments: Smoked approximately 1 pack of cigarettes per week for 30 years previously Meds Home Medications Medication Instructions Recorded Confirmed Type aspirin 325 mg PO DAILY 07/16/19 04/29/20 History pravastatin 80 mg PO HS 07/16/19 04/29/20 History calcium carbonate-vitamin D3 600 1 cap PO BID cap 08/09/19 04/29/20 History mg calcium-200 unit capsule diphenoxylate-atropine 2.5 1 tablet PO TID PRN #45 tablet 10/11/19 04/29/20 Rx mg-0.025 mg tablet metoprolol tartrate 25 mg tablet 25 mg PO BID tablet 10/13/19 04/29/20 History lisinopril 10 mg tablet 20 mg PO DAILY 11/01/19 04/29/20 History potassium chloride 20 mEq 20 meq PO DAILY 30 Days #30 tablet 12/28/19 04/29/20 Rx tablet,extended release hydrocodone-acetaminophen 1 tablet PO Q4-6H PRN
--- NOTE | 2020-05-01 17:05 | PM.IMPN ---
Progress Note: A&P Assessment and Plan (1) Cellulitis of leg: Qualifiers: Laterality: unspecified laterality Qualified Code(s): L03.119 - Cellulitis of unspecified part of limb Code(s): L03.119 - Cellulitis of unspecified part of limb Status: Acute Assessment and Plan: Patient had a white count so the ER physician stated that the patient had an infection to his lower extremities. the patient was started on Ancef. To me this looks more like vasculitis. explained to the patient that this was probably more vasculitis and increased his steroids.. He has not had any fever also the patient has vascular problems and he is aware of this. He stated he had arterial Dopplers in the past and he is aware that he has some arterial occlusion. patient is refusing any type of arterial or venous Dopplers at this time. Patient is aware that he could possibly have a DVT with his cancer. The patient stated that he just needed the antibiotics and that it would get better. since much improved will continue same plan (2) Arterial insufficiency: Code(s): I77.1 - Stricture of artery Status: Chronic Assessment and Plan: explained to the patient that we do not have a vascular surgeon here he did not want any further studies at this time. changed lisinopril to amlodipine for vasodilation (3) Bilateral lower extremity edema: Code(s): R60.0 - Localized edema Status: Acute Assessment and Plan: Patient was given diuretics which appeared to help somewhat. Patient could be retaining fluid from the steroids. but they are discontinued 8/2 with rising creatinine and bun. creatinine today 0.8 (4) Anemia: Code(s): D64.9 - Anemia, unspecified Status: Acute Assessment and Plan: Could be chemo induced, could be iron deficiency anemia could be B12. It looks like he is on ferrous sulfate and B12 hgb stable. (5) Hypertensive heart disease without congestive heart failure: Code(s): I11.9 - Hypertensive heart disease without heart failure Status: Acute Assessment and Plan: Continue low-dose metoprolol but changed lisinopril to amlodipine for possible further arterial dilatation and with rising creatinine / (6) Hyperlipidemia: Qualifiers: Hyperlipidemia type: unspecified Qualified Code(s): E78.5 - Hyperlipidemia, unspecified Code(s): E78.5 - Hyperlipidemia, unspecified Status: Acute Assessment and Plan: Patient is on pravastatin. (7) Acute hypokalemia: Code(s): E87.6 - Hypokalemia Status: Acute Assessment and Plan: patient is on daily potassium replace as necessary. (8) Cancer, metastatic to bone: Code(s): C79.51 - Secondary malignant neoplasm of bone Status: Chronic Assessment and Plan: I continued with his pain medication. Patient had radiation induced diarrhea at 1 time. He has p.r.n. anti diarrheal medications. Dr Sorenson states if can not get insurance approval for cabazitaxel will probable move to hospice care Subjective Date/time seen: 05/01/20 17:05 Interval history: Date of visit 05/01. 69-year-old hypertensive white male with metastatic prostate carcinoma presented with the some painful swollen left foot. Emergency room physician felt he had cellulitis but on evaluation but the hospitalist team he was found to have peripheral vascular disease and probable vasculitis' received IV Lasix and antibiotics and patient feels like it is improved more each day. main complaint is his back pain from his prostate CA. He has had no fever no chills Exam Narrative: Exam Narrative: blood pressure 116/64 pulse is 64 saturating 100% on room air afebrile lungs clear CV regular rate rhythm abdomen soft nontender extremities left foot is slightly erythematous and warm with bluish discoloration of his tops of his toe was which are cool but much less so than 8/ jesusita
[2020-05-01] MEDS: BETAMETHASONE/CLOTRIMAZOLE CR 15 GM TUBE 1 APPLIC TOPICAL ×2 (17:50→22:05)
[2020-05-01] MEDS: CYANOCOBALAMIN INJ 1,000 MCG/ML VIAL 1000 MCG IM (17:53)
[2020-05-01 17:59] VITALS: PULSE 67
[2020-05-01 22:00] VITALS: BP 105/60; PULSE 52; RESP 18; TEMP 36.7; O2SAT 100
[2020-05-01] MEDS: PRAVASTATIN SODIUM 20 MG TABLET 80 MG PO (22:04)
[2020-05-02 02:10] VITALS: BP 131/66; PULSE 106
[2020-05-02] MEDS: MORPHINE SULFATE 4 MG/ML INJ IV PUSH ×5 (03:10→23:20)
[2020-05-02 06:00] VITALS: BP 116/59; PULSE 78; RESP 16; TEMP 36.6; O2SAT 91
[2020-05-02 06:33] LABS: Basophils Percent Auto 0.1 % (0.2-1.2); Hematocrit 28.1 % (42.0-52.0); Hemoglobin 8.7 g/dL (14.0-18.0); Immature Granulocyte Absolute 0.07 K/mm3 (0.00-0.031); Immature Granulocyte Percent A 0.5 % (0-0.5); Lymphocytes Absolute Auto 0.51 K/mm3 (0.9-3.2); Lymphocytes Percent Auto 3.8 % (18.3-44.2); Mean Corpuscular Volume 87.3 fl (80-100); Mean Platelet Volume 11.2 fl (7.4-10.4); Monocytes Absolute Auto 0.5 K/mm3 (0.1-0.6); Monocytes Percent Auto 3.6 % (2.6-8.5); Neutrophils Absolute Auto 12.4 K/mm3 (1.3-6.7); Platelet Count Result 284 k/mm3 (150-375); Red Blood Count 3.22 M/mm3 (4.6-6.20); Red Cell Distribution Width 20.6 % (11.5-14.5); White Blood Count 13.5 K/mm3 (4.5-10.0)
[2020-05-02 06:49] LABS: Anion Gap 10.2 mmol/L (7-16); Blood Urea Nitrogen 32 mg/dL (9-20); Carbon Dioxide 28 mmol/L (22-30); Chloride 102 mmol/L (98-107); Estimated CRCL calculation 61 ml/min; Estimated Glomerular Filt Rate > 60; Glucose 101 mg/dL (75-110); Potassium 4.2 mmol/L (3.4-5.0); Sodium 136 mmol/L (137-145)
[2020-05-02] MEDS: amLODIPine BESYLATE 5 MG TABLET PO (07:50)
[2020-05-02] MEDS: METOPROLOL TARTRATE 25 MG TABLET PO ×2 (07:51→18:56)
[2020-05-02] MEDS: POTASSIUM CHLORIDE 20 MEQ TABLET.ER PO (07:52)
[2020-05-02] MEDS: predniSONE 20 MG TABLET 40 MG PO (07:54)
[2020-05-02] MEDS: MEGESTROL ACETATE (*CHEMO) ORAL SUSP 40 MG/ML SYR 800 MG PO (07:54)
[2020-05-02] MEDS: FERROUS SULFATE 324 MG TABLET PO (07:56)
[2020-05-02] MEDS: ASPIRIN 325 MG TABLET PO (07:57)
[2020-05-02] MEDS: BETAMETHASONE/CLOTRIMAZOLE CR 15 GM TUBE 1 APPLIC TOPICAL ×2 (07:57→21:01)
[2020-05-02] MEDS: ENOXAPARIN 40 MG/0.4 ML SYRINGE SUB-Q (07:57)
[2020-05-02 08:00] VITALS: PULSE 78; RESP 16; O2SAT 91
[2020-05-02 12:08] VITALS: BMI 18.8
[2020-05-02 14:00] VITALS: BP 103/65; PULSE 61; RESP 16; TEMP 36.6; O2SAT 100
--- NOTE | 2020-05-02 15:06 | PM.IMPN ---
Progress Note: A&P Assessment and Plan (1) Vasculitis: Code(s): I77.6 - Arteritis, unspecified Status: Acute Assessment and Plan: ----- rash on the lower extremities appear to be more vasculitis in the cellulitis. Unsure of the etiology at this time, could be due to cancer or chemo. Cryoglobulin are still pending. will check hep C, SILVIA, and UA for protein. Continue no 40 mg of prednisone daily at this time. Continue Ancef for bacterial infection that could be secondary to excoriation. Appreciate Dr. Sorenson recommendations (2) Cellulitis of leg: Qualifiers: Laterality: unspecified laterality Qualified Code(s): L03.119 - Cellulitis of unspecified part of limb Code(s): L03.119 - Cellulitis of unspecified part of limb Status: Acute Assessment and Plan: ------ see above. Patient does have strong pulses in his lower extremities but has a history of arterial disease. He will not do arterial Dopplers but will do venous Doppler. Wound care has been consulted. (3) Arterial insufficiency: Code(s): I77.1 - Stricture of artery Status: Chronic Assessment and Plan: ------ explained to the patient that we do not have a vascular surgeon here he did not want any further studies at this time. changed lisinopril to amlodipine for vasodilation (4) Bilateral lower extremity edema: Code(s): R60.0 - Localized edema Status: Acute Assessment and Plan: ------ Multifactorial, could be due to vasculitis, hypoproteinemia, for heart failure? will order an echo. DVT possible due to history of cancer but patient refused Dopplers until today. Will order (5) Anemia: Code(s): D64.9 - Anemia, unspecified Status: Acute Assessment and Plan: ----- hemoglobin stable, likely due to cancer. f/u with hematology (6) Hypertensive heart disease without congestive heart failure: Code(s): I11.9 - Hypertensive heart disease without heart failure Status: Acute Assessment and Plan: ------- Continue low-dose metoprolol but changed lisinopril to amlodipine for possible further arterial dilatation and with rising creatinine 8/2 (7) Hyperlipidemia: Qualifiers: Hyperlipidemia type: unspecified Qualified Code(s): E78.5 - Hyperlipidemia, unspecified Code(s): E78.5 - Hyperlipidemia, unspecified Status: Acute Assessment and Plan: -------Patient is on pravastatin. (8) Acute hypokalemia: Code(s): E87.6 - Hypokalemia Status: Acute Assessment and Plan: ------patient is on daily potassium replace as necessary. (9) Cancer, metastatic to bone: Code(s): C79.51 - Secondary malignant neoplasm of bone Status: Chronic Assessment and Plan: Follows with Dr. Sorenson. Dr Sorenson states if can not get insurance approval for cabazitaxel will probable move to hospice care Time Spent With Patient Time with patient: 25 - 35 minutes Subjective Date/time seen: 05/02/20 15:06 Interval history: Pt is a 69-year-old male here for vasculitis and lower extremity swelling. Patient was seen today with family at bedside. Pt states he is not having much pain in his legs. He is having back pain which is chronic for him. He says his legs are looking much better. He is eating drinking well now that he is on a better diet. He denies chest pain, nausea, vomiting, fevers, chills, diarrhea, constipation, or shortness of breath at this time. I spoke extensively with the daughter about The sequence of events and plan of care. Review of Systems Review of Systems: All systems reviewed & are unremarkable except as noted in HPI and below Exam Narrative: Exam Narrative: General: Elderly patient resting comfortably in bed in no acute distress HEENT: normocephalic Neck: supple Neuro: Alert and oriented x4 CV:RRR Resp:CTA Abd: Soft, non di
--- NOTE | 2020-05-02 17:40 | P.PNONC_ITS ---
Progress Note: A/P - Additional Plan Metastatic prostate cancer with progressive disease. Plan is to start cabazitaxel upon insurance approval. Bilateral lower extremity edema and cellulitis. Patient is on diuretic along with Ancef. I will consult wound care as well. studies showed no evidence of DVT. Anorexia and weight loss. Megace has been restarted. Multifactorial anemia. Continue oral iron twice a day along with vitamin B12 injection. No need for blood transfusion at this time. - Time Spent With Patient Total time spent is greater than 50% in coordination of care (as documented) at patient's floor/unit and/or counseling patient: 15 - 25 minutes Subjective Interval history: Metastatic prostate cancer Bilateral lower extremity edema and cellulitis Anemia Review of Systems - Review of Systems Patient remains quite tired and fatigued. He also has pain in the bilateral lower extremity with improvement in swelling. Denies any fevers and chills. Denies any bleeding. No other new complaints. - Neurologic Reports system reviewed and no additional complaints, except as documented, Reports hearing normal, Reports weakness, Denies numbness Exam Vital signs: Temp Pulse Resp BP Pulse Ox 36.6 C 61 16 103/65 100 05/02/20 14:00 05/02/20 14:00 05/02/20 14:00 05/02/20 14:00 05/02/20 14:00 Lungs are clear to auscultation bilaterally Cardiovascular regular rate rhythm no murmurs Abdomen soft nontender nondistended bowel sounds are positive Extremities bilateral lower extremity edema with minimal improvement along with cellulitis and purplish discoloration of toes PN: Objective Data - Labs CBC & Chem 7: 05/02/20 05:53 05/02/20 05:53 Labs: Laboratory Results - last 24 hr 05/02/20 05/02/20 05:53 05:53 WBC 13.5 H RBC 3.22 L Hgb 8.7 L Hct 28.1 L MCV 87.3 MCH 27.0 MCHC 31.0 L RDW 20.6 H Plt Count 284 MPV 11.2 H Immature Gran % (Auto) 0.5 Neut % (Auto) 92.0 H Lymph % (Auto) 3.8 L [place] % (Auto) 3.6 Eos % (Auto) 0.0 Baso % (Auto) 0.1 L Lymph # (Auto) 0.51 L [place] # (Auto) 0.5 Eos # (Auto) 0.0 Baso # (Auto) 0.0 Abs Immat Gran (auto) 0.07 H Absolute Neuts (auto) 12.4 H Absolute Nucleated RBC 0.0 Nucleated RBC % 0.0 Sodium 136 L Potassium 4.2 Chloride 102 Carbon Dioxide 28 Anion Gap 10.2 BUN 32 H Creatinine 0.80 Estim Creat Clear Calc 61 Estimated GFR > 60 Glucose 101 Calcium 8.0 L
[2020-05-02 17:50] LABS: Add Urine Microscopic? YES; Appearance Urine Clear (Clear); Bacteria Urine Trace /hpf; Bilirubin Urine Negative (Negative); Blood Urine 2+ (Negative); Color Urine Yellow (Yellow); Glucose Urine UA Negative (Negative); Ketones Urine Negative (Negative); Leukocyte Esterase Ur Negative LEU/UL (Negative); Nitrate Urine Negative (Negative); Protein Urine Negative (Negative); RBC Urine 51-75 /hpf (0-2); Specific Grav Ur 1.025 (1.001-1.035); Urobilinogen Urine Negative mg/dL (<2.0)
[2020-05-02] MEDS: PRAVASTATIN SODIUM 20 MG TABLET 80 MG PO (21:01)
[2020-05-02 21:25] VITALS: BP 102/53; PULSE 64; RESP 20; TEMP 36.8; O2SAT 100
[2020-05-02 21:30] VITALS: PULSE 64; RESP 20; O2SAT 100
--- NOTE | 2020-05-03 | ECHO_ITS ---
Patient Info Name: Urbano Guerra Age: 69 years : 1950 Gender: Male Ht: 68 in Wt: 124 lbs BSA: 1.63 m2 HR: 60 bpm BP: 116 / 59 mmHg Heart Rhythm: Sinus Rhythm Technical Quality: Good Exam Date: 05/03/2020 2:01 PM Exam Location: [facility] Pul[facility] Patient Status: Inpatient Admit Date: 05/01/2020 Staff Ordering Physician: Mehreen Nguyen PA-C Financial Planning Assistant: Aurelio Casey RDCS Attending Provider: Mehreen Nguyen PA-C Referring Physician: Patrick BENSON; Exam Type: CA echo doppler color flow Study Info Indications R60.9 - Edema, unspecified Complete two-dimensional, color flow and Doppler transthoracic echocardiogram is performed. History/Risk Factors Lower extremity edema; HTN, CAD, CHF w/ BNP 2700. Summary 1. Left ventricular chamber dimension is normal. 2. Left ventricular systolic function is normal, estimated at 60-65%. 3. There is mildly increased left ventricular wall thickness. 4. The left ventricular diastolic function is grade I diastolic dysfunction. 5. E/e' 4 is not elevated. 6. Left atrial chamber dimension is mildly enlarged. 7. There is mild aortic valve sclerosis. 8. There is mild to moderate aortic valve regurgitation. 9. The mitral valve has mildly calcified annulus. 10. There is mild mitral valve regurgitation. 11. There is trace tricuspid valve regurgitation. 12. No pulmonary hypertension, estimated pulmonary arterial systolic pressure is 26 mmHg. 13. There is trivial pericardial effusion. Left Ventricle E/e' 4 is not elevated. Left ventricular chamber dimension is normal. Left ventricular systolic function is normal, estimated at 60-65%. There is mildly increased left ventricular wall thickness. The left ventricular diastolic function is grade I diastolic dysfunction. Right Ventricle Right ventricular chamber dimension is normal. Right ventricular systolic function is normal. Left Atria Left atrial chamber dimension is mildly enlarged. Right Atria Right atrial chamber dimension is normal. Aortic Valve The aortic valve is trileaflet. There is mild aortic valve sclerosis. There is no aortic valve stenosis. There is mild to moderate aortic valve regurgitation. Pulmonic Valve There is no pulmonic regurgitation. Mitral Valve The mitral valve has mildly calcified annulus. There is no mitral valve stenosis. There is mild mitral valve regurgitation. Tricuspid Valve There is trace tricuspid valve regurgitation. No pulmonary hypertension, estimated pulmonary arterial systolic pressure is 26 mmHg. Pericardium/Pleural There is trivial pericardial effusion. Inferior Vena Cava Normal inferior vena cava with >50% collapse upon inspiration consistent with normal right atrial pressure, 5 mmHg. Aorta The aortic root size at the sinus of Valsalva is normal. Left Ventricular Outflow Tract Name Value Normal LVOT 2D LVOT Diameter 2.2 cm LVOT Doppler LVOT Peak Gradient 2 mmHg LVOT Mean Gradient 1 mmHg LVOT VTI 14 cm LVOT VTI/AV VTI Ra
[2020-05-03] MEDS: MORPHINE SULFATE 4 MG/ML INJ IV PUSH ×2 (05:45→15:07)
[2020-05-03 06:00] VITALS: BP 122/59; PULSE 72; RESP 16; TEMP 36.4; O2SAT 98
[2020-05-03 06:05] LABS: Hematocrit 27.1 % (42.0-52.0); Hemoglobin 8.1 g/dL (14.0-18.0); Mean Corpuscular HGB Conc 29.9 g/dl (32-36); Mean Corpuscular Hemoglobin 26.9 pg (26-34); Mean Platelet Volume 11.3 fl (7.4-10.4); Platelet Count Result 246 k/mm3 (150-375); Red Blood Count 3.01 M/mm3 (4.6-6.20); Red Cell Distribution Width 20.4 % (11.5-14.5)
[2020-05-03 06:23] LABS: Anion Gap 7.8 mmol/L (7-16); Blood Urea Nitrogen 29 mg/dL (9-20); CRP 6.3 mg/dL (<1.0); Calcium 8.2 mg/dL (8.4-10.2); Carbon Dioxide 30 mmol/L (22-30); Chloride 102 mmol/L (98-107); Estimated CRCL calculation 61 ml/min; Estimated Glomerular Filt Rate > 60; Glucose 97 mg/dL (75-110); Potassium 3.8 mmol/L (3.4-5.0); Sodium 136 mmol/L (137-145)
[2020-05-03 06:57] LABS: HIV 1/2 Ab P24 Ag Result Negative (Negative)
[2020-05-03] MEDS: ASPIRIN 325 MG TABLET PO (08:50)
[2020-05-03] MEDS: amLODIPine BESYLATE 5 MG TABLET PO (08:50)
[2020-05-03] MEDS: FERROUS SULFATE 324 MG TABLET PO (08:50)
[2020-05-03] MEDS: predniSONE 20 MG TABLET 40 MG PO (08:50)
[2020-05-03] MEDS: POTASSIUM CHLORIDE 20 MEQ TABLET.ER PO (08:51)
[2020-05-03] MEDS: ENOXAPARIN 40 MG/0.4 ML SYRINGE SUB-Q (08:51)
[2020-05-03] MEDS: BETAMETHASONE/CLOTRIMAZOLE CR 15 GM TUBE 1 APPLIC TOPICAL ×2 (08:51→20:16)
[2020-05-03 08:52] VITALS: PULSE 68
[2020-05-03] MEDS: MEGESTROL ACETATE (*CHEMO) ORAL SUSP 40 MG/ML SYR 800 MG PO (08:52)
[2020-05-03] MEDS: METOPROLOL TARTRATE 25 MG TABLET PO ×2 (08:52→17:11)
[2020-05-03 08:53] LABS: Hepatitis B Surface Antigen Negative (Negative)
[2020-05-03 09:00] LABS: HAV RESULT Negative (Negative); Hepatitis B Core IgM Result Negative (Negative)
[2020-05-03 09:10] LABS: Hepatitis C Virus Antibody Negative (Negative)
[2020-05-03 14:00] VITALS: BP 97/56; PULSE 65; RESP 16; TEMP 36.8; O2SAT 99
--- NOTE | 2020-05-03 15:58 | PM.IMPN ---
Progress Note: A&P Assessment and Plan (1) Vasculitis: Code(s): I77.6 - Arteritis, unspecified Status: Acute Assessment and Plan: ----- rash on the lower extremities appear to be more vasculitis than cellulitis. Unsure of the etiology at this time, could be due to cancer or chemo. Cryoglobulin and SILVIA still pending. Hep C neg. UA neg for protein and albumin only midly low and likely not cause of swelling. Continue no 40 mg of prednisone daily at this time. Continue Ancef for bacterial infection that could be secondary to excoriation. Appreciate Dr. Sorenson recommendations (2) Cellulitis of leg: Qualifiers: Laterality: unspecified laterality Qualified Code(s): L03.119 - Cellulitis of unspecified part of limb Code(s): L03.119 - Cellulitis of unspecified part of limb Status: Acute Assessment and Plan: ------ see above. Patient does have strong pulses in his lower extremities but has a history of arterial disease. He will not do arterial Dopplers but agreed to venous doppler which was neg. Wound care has been consulted. (3) Arterial insufficiency: Code(s): I77.1 - Stricture of artery Status: Chronic Assessment and Plan: ------ explained to the patient that we do not have a vascular surgeon here he did not want any further studies at this time. changed lisinopril to amlodipine for vasodilation (4) Bilateral lower extremity edema: Code(s): R60.0 - Localized edema Status: Acute Assessment and Plan: ------ Multifactorial, could be due to vasculitis, hypoproteinemia, for heart failure? will order an echo. DVT possible due to history of cancer but patient refused Dopplers until today. pt also has wound on his coccyx and is getting triple care barrier antifungal cream. (5) Anemia: Code(s): D64.9 - Anemia, unspecified Status: Acute Assessment and Plan: ----- hemoglobin stable, likely due to cancer. f/u with hematology (6) Hypertensive heart disease without congestive heart failure: Code(s): I11.9 - Hypertensive heart disease without heart failure Status: Acute Assessment and Plan: ------- Continue low-dose metoprolol but changed lisinopril to amlodipine for possible further arterial dilatation and with rising creatinine 8/2 (7) Hyperlipidemia: Qualifiers: Hyperlipidemia type: unspecified Qualified Code(s): E78.5 - Hyperlipidemia, unspecified Code(s): E78.5 - Hyperlipidemia, unspecified Status: Acute Assessment and Plan: -------Patient is on pravastatin. (8) Acute hypokalemia: Code(s): E87.6 - Hypokalemia Status: Acute Assessment and Plan: ------patient is on daily potassium replace as necessary. (9) Cancer, metastatic to bone: Code(s): C79.51 - Secondary malignant neoplasm of bone Status: Chronic Assessment and Plan: Follows with Dr. Sorenson. Dr Sorenson states if can not get insurance approval for cabazitaxel will probable move to hospice care Subjective Date/time seen: 05/03/20 15:58 Interval history: Pt is a 69-year-old male here for vasculitis and lower extremity swelling. Patient was seen today with family at bedside. Pt states he is tired today. He thinks the rash and swelling is better today and daughter agrees. he is 'eating as much as he can'. No complaints of CP, SOB, diarrhea, constipation, fevers, or chills. Exam Narrative: Exam Narrative: General: Elderly patient resting comfortably in bed in no acute distress HEENT: normocephalic Neck: supple Neuro: Alert and oriented x4 CV:RRR Resp:CTA Abd: Soft, non distended. No pain to palpation. Positive bowel sounds Extremities: Vasculitis like petechiae rash on bilateral legs that do not blance. 2+ edema to the feet bilaterally. No pain to palpation. both extremities are cold but have strong pulses on dop
[2020-05-03] MEDS: FUROSEMIDE INJ 40 MG/4 ML VIAL IV PUSH (17:04)
[2020-05-03 17:11] VITALS: PULSE 68
[2020-05-03] MEDS: PRAVASTATIN SODIUM 20 MG TABLET 80 MG PO (20:16)
[2020-05-03 22:00] VITALS: BP 98/55; PULSE 72; RESP 16; TEMP 36.8; O2SAT 100
[2020-05-04] VITALS: BP 109/63; PULSE 58; RESP 16; TEMP 36.6; O2SAT 100
[2020-05-04] MEDS: MORPHINE SULFATE 4 MG/ML INJ IV PUSH ×4 (00:15→21:46)
[2020-05-04 06:00] VITALS: BP 110/59; PULSE 71; RESP 20; TEMP 36.6; O2SAT 100
[2020-05-04 06:36] LABS: Hematocrit 26.4 % (42.0-52.0); Hemoglobin 8.1 g/dL (14.0-18.0); Mean Corpuscular HGB Conc 30.7 g/dl (32-36); Mean Corpuscular Hemoglobin 27.2 pg (26-34); Mean Corpuscular Volume 88.6 fl (80-100); Mean Platelet Volume 10.8 fl (7.4-10.4); Platelet Count Result 221 k/mm3 (150-375); Red Blood Count 2.98 M/mm3 (4.6-6.20); White Blood Count 10.5 K/mm3 (4.5-10.0)
[2020-05-04 06:56] LABS: Anion Gap 6.6 mmol/L (7-16); Blood Urea Nitrogen 29 mg/dL (9-20); Calcium 8.5 mg/dL (8.4-10.2); Carbon Dioxide 31 mmol/L (22-30); Chloride 102 mmol/L (98-107); Estimated CRCL calculation 69 ml/min; Estimated Glomerular Filt Rate > 60; Glucose 92 mg/dL (75-110); Potassium 3.6 mmol/L (3.4-5.0); Sodium 136 mmol/L (137-145)
[2020-05-04 08:00] VITALS: PULSE 66; RESP 16; O2SAT 97
[2020-05-04] MEDS: amLODIPine BESYLATE 5 MG TABLET PO (09:12)
[2020-05-04] MEDS: predniSONE 20 MG TABLET 40 MG PO (09:13)
[2020-05-04] MEDS: ASPIRIN 325 MG TABLET PO (09:13)
[2020-05-04] MEDS: BETAMETHASONE/CLOTRIMAZOLE CR 15 GM TUBE 1 APPLIC TOPICAL ×2 (09:14→21:00)
[2020-05-04] MEDS: MEGESTROL ACETATE (*CHEMO) ORAL SUSP 40 MG/ML SYR 800 MG PO (09:14)
[2020-05-04] MEDS: FERROUS SULFATE 324 MG TABLET PO (09:15)
[2020-05-04] MEDS: ENOXAPARIN 40 MG/0.4 ML SYRINGE SUB-Q (09:16)
[2020-05-04] MEDS: METOPROLOL TARTRATE 25 MG TABLET PO ×2 (09:16→18:01)
[2020-05-04] MEDS: POTASSIUM CHLORIDE 20 MEQ TABLET.ER PO (09:16)
[2020-05-04] MEDS: FUROSEMIDE INJ 40 MG/4 ML VIAL IV PUSH (09:17)
--- NOTE | 2020-05-04 12:27 | PM.IMPN ---
Progress Note: A&P Assessment and Plan (1) Vasculitis: Code(s): I77.6 - Arteritis, unspecified Status: Acute Assessment and Plan: -----Continue steroids. Unsure of the etiology at this time, could be due to cancer or chemo. Cryoglobulin and SILVIA still pending. Hep C neg. UA neg for protein and albumin only midly low and likely not cause of swelling. Continue 30mg of prednisone daily at this time (decreased). Continue Ancef for bacterial infection that could be secondary to excoriation. Appreciate Dr. Sorenson recommendations (2) Cellulitis of leg: Qualifiers: Laterality: unspecified laterality Qualified Code(s): L03.119 - Cellulitis of unspecified part of limb Code(s): L03.119 - Cellulitis of unspecified part of limb Status: Acute Assessment and Plan: ------ see above. Patient does have strong pulses in his lower extremities but has a history of arterial disease. He will not do arterial Dopplers but agreed to venous doppler which was neg. Wound care has been consulted. (3) Arterial insufficiency: Code(s): I77.1 - Stricture of artery Status: Chronic Assessment and Plan: ------Will consult . changed lisinopril to amlodipine for vasodilation (4) Bilateral lower extremity edema: Code(s): R60.0 - Localized edema Status: Acute Assessment and Plan: ------ Multifactorial, could be due to vasculitis, steroids, and cancer. No DVTs noted. Lasix restarted 05/03 and will continue 40mg IV daily. pt also has wound on his coccyx and is getting triple care barrier antifungal cream. (5) Anemia: Code(s): D64.9 - Anemia, unspecified Status: Acute Assessment and Plan: ----- hemoglobin stable, likely due to cancer. f/u with hematology (6) Hypertensive heart disease without congestive heart failure: Code(s): I11.9 - Hypertensive heart disease without heart failure Status: Acute Assessment and Plan: ------- Continue low-dose metoprolol but changed lisinopril to amlodipine for possible further arterial dilatation and with rising creatinine 04/30 (7) Hyperlipidemia: Qualifiers: Hyperlipidemia type: unspecified Qualified Code(s): E78.5 - Hyperlipidemia, unspecified Code(s): E78.5 - Hyperlipidemia, unspecified Status: Acute Assessment and Plan: -------Patient is on pravastatin. (8) Acute hypokalemia: Code(s): E87.6 - Hypokalemia Status: Acute Assessment and Plan: ------patient is on daily potassium replace as necessary. (9) Cancer, metastatic to bone: Code(s): C79.51 - Secondary malignant neoplasm of bone Status: Chronic Assessment and Plan: Follows with Dr. Sorenson. Dr Sorenson states if can not get insurance approval for cabazitaxel will probable move to hospice care Subjective Date/time seen: 05/04/20 12:27 Interval history: Pt is a 69-year-old male here for vasculitis and lower extremity swelling. Patient was seen today and says his pain is better but legs are still painful. No complaints of CP, SOB, diarrhea, constipation, fevers, or chills. Exam Narrative: Exam Narrative: General: Elderly patient resting comfortably in the chair in no acute distress HEENT: normocephalic Neck: supple Neuro: Alert and oriented x4 CV:RRR Resp:CTA Abd: Soft, non distended. No pain to palpation. Positive bowel sounds Extremities: Vasculitis like petechiae rash has improved on bilateral legs. Legs show more erythema and sloughing today. Pulses intact by doppler. Warm to touch. 2+ edema to the feet bilaterally with 1+ to the haider. Objective Data Vital Signs Vital Signs: Vital Signs - 24 hr 05/03/20 14:00 05/03/20 17:11 05/03/20 22:00 Temperature 98.2 F 98.2 F Pulse Rate 65 68 72 Respiratory Rate 16 16 Blood Pressure 97/56 L 98/55 L Pulse Oximetry 99 100 05/04/20
[2020-05-04 14:00] VITALS: BP 93/49; PULSE 66; RESP 16; TEMP 36.8; O2SAT 97
[2020-05-04] MEDS: SILVERGEL (ELTA) 45 ML 1 APPLIC TOPICAL (14:03)
--- NOTE | 2020-05-04 16:03 | PM.CNCAR ---
Assessment and Plan Assessment and plan (1) Arterial insufficiency: Code(s): I77.1 - Stricture of artery Status: Chronic Assessment and Plan: he seems to have chronic severe peripheral vascular disease, causing leg weakness and wasting, will get arterial duplex to evaluate the severity and the location of the disease. In the event that needs to have procedures done with that we have to evaluate his longevity expectations especially in view of history of prostatic cancer. I will be more in favor of symptomatic treatment and watchful monitoring in view of his life expectancy. I will talk to Dr. Sorenson, enquiring about prognosis of his cancer (2) Cellulitis of leg: Qualifiers: Laterality: unspecified laterality Qualified Code(s): L03.119 - Cellulitis of unspecified part of limb Code(s): L03.119 - Cellulitis of unspecified part of limb Status: Acute Assessment and Plan: with worsening venous insufficiency, causing cellulitis, agree with antibiotics agree with diuresis the swelling seems to be better now but he has significant skin discoloration and scaling lesion of the skin in view of chronic venous stasis. consider local lidocaine cream or spray for symptomatic relief (3) Bilateral lower extremity edema: Code(s): R60.0 - Localized edema Status: Acute Assessment and Plan: due to venous insufficiency, seems to be better now (4) Hypophosphatemia: Code(s): E83.39 - Other disorders of phosphorus metabolism Status: Acute (5) Coronary artery disease involving [place] coronary artery of [place] heart: Qualifiers: Associated angina: without angina Qualified Code(s): I25.10 - Atherosclerotic heart disease of [place] coronary artery without angina pectoris Code(s): I25.10 - Atherosclerotic heart disease of [place] coronary artery without angina pectoris Status: Acute Additional Plan Thank you for allowing me to participate in this patient's care, I will be following up with you. Please do not hesitate to call me for any other inquiry History of Present Illness History of Present Illness Consult date/time: 05/04/20 16:03 Reason for the consult: evaluation for peripheral vascular disease. 69-year-old gentleman with history of known coronary disease previous stent placement, and history of hypertension history of smoking history of prostate cancer, was admitted to the hospitalist to leg pain and leg swelling with multiple skin lesion on the legs with skin breakdown and scaling lesions. He has significant leg swelling which improved his admission but he has significant burning sensation of both legs with heaviness and weakness. He stated that he cannot walk but he was not able to walk for a while no known diagnosed peripheral vascular disease but he has significant discoloration and he has very weak pulses noted. No recent chest pain he has mild shortness of breath no orthopnea no PNDs Reason For Visit: Lower extremity cellulitis/lower extremity edema Review of Systems Constitutional: Constitutional: Reports body ache(s), Reports fatigue, Reports lethargy and Reports weakness Cardiovascular: Cardiovascular: Reports as per HPI Respiratory: Respiratory: Reports cough and Reports dyspnea PMFSH Past Medical History Medical History Arterial insufficiency Cancer, metastatic to bone Chronic anemia Coronary artery disease involving [place] coronary artery of [place] heart Decreased appetite Depression Diarrhea Hyperlipidemia Hypertensive heart disease without congestive heart failure Malignant neoplasm of prostate PVD (peripheral vascular disease) Surgical History Surgical History History of cardiac catheterization in 2002 with stents placed S/P total knee arthroplasty right knee S/P TURP October 2016 Family History Family
--- NOTE | 2020-05-04 17:03 | P.PNONC_ITS ---
Progress Note: A/P - Additional Plan Bilateral lower extremity edema and cellulitis. I have discussed this case with hospitalist team. I recommended consultation with vascular service. Patient has already been on diuretic as well as antibiotic with Ancef and steroid for vasculitis. Metastatic prostate cancer with progressive disease. Patient has failed multiple line of therapy. Unfortunately his prognosis does not seems to be good due to failure of therapy with progressive disease. He is still waiting to get approval for cabazitaxel from the [employer]. Anorexia and weight loss. Patient is on Magace. Multifactorial anemia. Left noted. He is on oral iron along with vitamin B12. Will transfuse as needed. - Time Spent With Patient Total time spent is greater than 50% in coordination of care (as documented) at patient's floor/unit and/or counseling patient: 15 - 25 minutes Subjective Interval history: Metastatic prostate cancer Bilateral lower extremity edema and cellulitis Anemia Review of Systems - Review of Systems Patient condition remain unchanged. Right lower extremity swelling may be slightly worse. He remains quite tired and fatigued. Denies any fevers and chills. Open wounds on both feet noted. - Neurologic Reports system reviewed and no additional complaints, except as documented, Reports hearing normal, Reports weakness, Denies numbness Exam Narrative: Lungs are clear to auscultation bilaterally Cardiovascular regular rate rhythm no murmurs Abdomen soft nontender nondistended bowel sounds are positive Extremities bilateral edema with signs of vasculitis and peripheral vascular disease with purplish discoloration and peeling of the skin. PN: Objective Data - Labs CBC & Chem 7: 05/04/20 05:57 05/04/20 05:58 Labs: Laboratory Results - last 24 hr 05/04/20 05/04/20 05:57 05:58 WBC 10.5 H RBC 2.98 L Hgb 8.1 L Hct 26.4 L MCV 88.6 MCH 27.2 MCHC 30.7 L RDW 20.0 H Plt Count 221 MPV 10.8 H Sodium 136 L Potassium 3.6 Chloride 102 Carbon Dioxide 31 H Anion Gap 6.6 L BUN 29 H Creatinine 0.70 Estim Creat Clear Calc 69 Estimated GFR > 60 Glucose 92 Calcium 8.5
[2020-05-04 20:00] VITALS: PULSE 81; RESP 16; O2SAT 100
[2020-05-04] MEDS: PRAVASTATIN SODIUM 20 MG TABLET 80 MG PO (21:46)
[2020-05-04 22:00] VITALS: BP 121/58; PULSE 81; RESP 16; TEMP 36.9; O2SAT 100
[2020-05-05] MEDS: MORPHINE SULFATE 4 MG/ML INJ IV PUSH (04:30)
[2020-05-05 06:00] VITALS: BP 120/66; PULSE 70; RESP 18; TEMP 36.8; O2SAT 99
[2020-05-05 06:10] LABS: Basophils Percent Auto 0.2 % (0.2-1.2); Hematocrit 28.9 % (42.0-52.0); Hemoglobin 8.9 g/dL (14.0-18.0); Immature Granulocyte Absolute 0.09 K/mm3 (0.00-0.031); Immature Granulocyte Percent A 0.8 % (0-0.5); Lymphocytes Absolute Auto 0.38 K/mm3 (0.9-3.2); Lymphocytes Percent Auto 3.2 % (18.3-44.2); Mean Corpuscular HGB Conc 30.8 g/dl (32-36); Mean Corpuscular Hemoglobin 27.1 pg (26-34); Mean Corpuscular Volume 87.8 fl (80-100); Mean Platelet Volume 11.1 fl (7.4-10.4); Monocytes Absolute Auto 0.4 K/mm3 (0.1-0.6); Monocytes Percent Auto 2.9 % (2.6-8.5); Neutrophils Absolute Auto 11.1 K/mm3 (1.3-6.7); Neutrophils Percent Auto 92.9 % (45.5-73.1); Platelet Count Result 214 k/mm3 (150-375); Red Blood Count 3.29 M/mm3 (4.6-6.20); Red Cell Distribution Width 19.9 % (11.5-14.5)
[2020-05-05 06:20] LABS: Magnesium 1.8 mg/dL (1.6-2.3)
[2020-05-05 06:40] LABS: Anisocytosis 1+ (NORMAL); Platelet Estimate Adequate (Adequate)
[2020-05-05 07:44] VITALS: PULSE 70; RESP 18; O2SAT 99
[2020-05-05] MEDS: ENOXAPARIN 40 MG/0.4 ML SYRINGE SUB-Q (08:44)
[2020-05-05] MEDS: amLODIPine BESYLATE 5 MG TABLET PO (08:45)
[2020-05-05] MEDS: METOPROLOL TARTRATE 25 MG TABLET PO ×2 (08:47→15:49)
[2020-05-05] MEDS: predniSONE 10 MG TABLET 30 MG PO (08:47)
[2020-05-05] MEDS: FERROUS SULFATE 324 MG TABLET PO (08:48)
[2020-05-05] MEDS: ASPIRIN 325 MG TABLET PO (08:48)
[2020-05-05] MEDS: MEGESTROL ACETATE (*CHEMO) ORAL SUSP 40 MG/ML SYR 800 MG PO (09:02)
[2020-05-05] MEDS: FUROSEMIDE INJ 40 MG/4 ML VIAL IV PUSH (09:02)
[2020-05-05] MEDS: BETAMETHASONE/CLOTRIMAZOLE CR 15 GM TUBE 1 APPLIC TOPICAL ×2 (09:02→21:58)
[2020-05-05] MEDS: POTASSIUM CHLORIDE 20 MEQ TABLET.ER PO (09:03)
[2020-05-05] MEDS: SILVERGEL (ELTA) 45 ML 1 APPLIC TOPICAL (09:03)
[2020-05-05] MEDS: EUCERIN CREAM 120 GM JAR 1 APPLIC TOPICAL (09:03)
--- NOTE | 2020-05-05 12:37 | PCPTNOTE ---
Patient declined PT stating I have had a rough morning and just got back to my room about a half hour ago. PT will continue to follow per plan of care.
[2020-05-05 14:00] VITALS: BP 85/50; PULSE 71; RESP 16; TEMP 36.9; O2SAT 99
--- NOTE | 2020-05-05 14:06 | PM.PNCARD ---
Progress Note: A&P Assessment and Plan (1) Anemia: Code(s): D64.9 - Anemia, unspecified Status: Acute (2) Hyperlipidemia: Qualifiers: Hyperlipidemia type: unspecified Qualified Code(s): E78.5 - Hyperlipidemia, unspecified Code(s): E78.5 - Hyperlipidemia, unspecified Status: Acute (3) Cancer, metastatic to bone: Code(s): C79.51 - Secondary malignant neoplasm of bone Status: Chronic Assessment and Plan: management per PC (4) Malignant neoplasm of prostate: Code(s): C61 - Malignant neoplasm of prostate Status: Acute (5) Diarrhea: Code(s): R19.7 - Diarrhea, unspecified Status: Acute (6) Coronary artery disease involving [place] coronary artery of [place] heart: Qualifiers: Associated angina: without angina Qualified Code(s): I25.10 - Atherosclerotic heart disease of [place] coronary artery without angina pectoris Code(s): I25.10 - Atherosclerotic heart disease of [place] coronary artery without angina pectoris Status: Acute Assessment and Plan: stable cont meds (7) Vasculitis: Code(s): I77.6 - Arteritis, unspecified Status: Acute Assessment and Plan: LE US suggested small vessel disease (occlusion of anterior tibial) cont meds Subjective Date/time seen: 05/05/20 14:06 Pt little confused. No CP, SOB or palpitations. Pt was seen and examined, chart reviewed. Review of Systems Review of Systems: All systems reviewed & are unremarkable except as noted in HPI and below Constitutional: Constitutional: Reports as per HPI Eyes: Eyes: Reports as per HPI ENT: Reports system reviewed and no additional complaints, except as documented and Reports as per HPI Cardiovascular: Cardiovascular: Reports as per HPI Respiratory: Respiratory: Reports as per HPI Gastrointestinal: Gastrointestinal: Reports as per HPI Genitourinary: Genitourinary: Reports as per HPI Musculoskeletal: Musculoskeletal: Reports as per HPI Exam Const: General: no acute distress Nutritional Appearance: well nourished Orientation/consciousness: patient oriented x3 HENMT: Head: normal to inspection and atraumatic Ears: hearing grossly normal bilaterally Face and sinus: normal facial exam Eyes: General: appearance normal, both eyes and all related structures Pupils: Equal, round and reactive pupils present EOM: EOMs intact bilaterally Neck: Neck: supple Chest: Chest palpation & inspection: normal inspection of the chest Resp: Effort & Inspection: normal respiratory effort and no respiratory distress Auscultation: clear to auscultation bilaterally Cardio: Jugular venous distension: no JVD Rate: regular rate Heart sounds: S1 normal heart sound present, S2 normal heart sound present and no murmurs Peripheral pulses: Peripheral pulses 2+ throughout GI: GI Palp: No abdominal tenderness Auscultation: normal bowel sounds Skin: General skin exam: normal color Neuro: General: patient oriented x3 Cranial nerves: Yes Equal, round and reactive pupils present Extrem: General: normal to inspection and no clubbing, cyanosis or edema Objective Data Vital Signs Vital Signs: Vital Signs - 24 hr 05/04/20 20:00 05/04/20 22:00 05/05/20 06:00 Temperature 36.9 C 36.8 C Pulse Rate 81 81 70 Respiratory Rate 16 16 18 Blood Pressure 121/58 L 120/66 Pulse Oximetry 100 100 99 05/05/20 07:44 Temperature Pulse Rate 70 Respiratory Rate 18 Blood Pressure Pulse Oximetry 99 Intake/Output Intake/Output: Intake & Output 05/02/20 05/03/20 05/04/20 05/05/20 23:59 23:59 23:59 23:59 Intake Total 1110 2200 1880 590 Output Total 750 1000 1550 100 Balance 360 1200 330 490 Meds/Results Medications: Active Medications Generic Name Dose Route Start Last Admin Trade Name Freq PRN Reason Stop Dose Admin Hydrocodone Bitart/Acetaminophen 1 tab 04/30/20 00:07 05/05/20 12:26 [place] 10-325 Mg PO 1 ta
--- NOTE | 2020-05-05 14:11 | PCOTNOTE ---
Attempted to see patient four times this date. First attempt, patient refused. Second attempt, patient was off floor for procedure/testing. Third attempt, patient was eating lunch. Fourth attempt, patient refused stating, Whatever it is, I'm not doing it. I've had a rough morning.
--- NOTE | 2020-05-05 15:53 | P.PNONC_ITS ---
Progress Note: A/P - Additional Plan Bilateral lower extremity edema and cellulitis along with peripheral vascular disease. Cardiology input noted. His foot already looking better. Continue antibiotic with diuretic. Patient is also on aspirin and Lovenox prophylaxis. I have reviewed artery Doppler studies finding. Metastatic prostate cancer with progressive disease. Cabazitaxel was not approved by the insurance company. I have discussed hospice care with the patient and also daughter in [place]. They will make decision over the weekend and will get back to me for further management Anorexia and weight loss. Patient is on Megace. Multifactorial anemia. Hemoglobin has improved. He will continue oral iron and vitamin B12. - Time Spent With Patient Total time spent is greater than 50% in coordination of care (as documented) at patient's floor/unit and/or counseling patient: 15 - 25 minutes Subjective Interval history: Metastatic prostate cancer Bilateral lower extremity edema and cellulitis Anemia Review of Systems - Review of Systems Patient is feeling better with better pain control bilateral feet. Denies any fevers and chills. Remains tired and fatigued. Denies any other new complaint - Neurologic Reports system reviewed and no additional complaints, except as documented, Reports hearing normal, Reports weakness, Denies numbness Exam Vital signs: Lili Cortez. Assessment of coma and impaired consciousness. A practical scale. Lancet 1974; 2:81-4. Narrative: Lungs are clear to auscultation bilaterally Cardiovascular regular rate rhythm no murmurs Abdomen soft nontender nondistended Extremities bilateral foot edema with some improvement in cellulitis PN: Objective Data - Labs CBC & Chem 7: 05/05/20 05:44 05/04/20 05:58 Labs: Laboratory Results - last 24 hr 05/05/20 05/05/20 05:44 05:44 WBC 12.0 H RBC 3.29 L Hgb 8.9 L Hct 28.9 L MCV 87.8 MCH 27.1 MCHC 30.8 L RDW 19.9 H Plt Count 214 MPV 11.1 H Immature Gran % (Auto) 0.8 H Neut % (Auto) 92.9 H Lymph % (Auto) 3.2 L [place] % (Auto) 2.9 Eos % (Auto) 0.0 Baso % (Auto) 0.2 Lymph # (Auto) 0.38 L [place] # (Auto) 0.4 Eos # (Auto) 0.0 Baso # (Auto) 0.0 Abs Immat Gran (auto) 0.09 H Absolute Neuts (auto) 11.1 H Absolute Nucleated RBC 0.0 Nucleated RBC % 0.0 Platelet Estimate Adequate Anisocytosis 1+ Magnesium 1.8
--- NOTE | 2020-05-05 16:00 | PCDIET ---
Nutrition Follow-Up Complete: Increased Kcal needs as related to prostate cancer as evidenced by wounds/poor po intake. Adequate Intake of at least 75% of meals/supplements Goal: Progressing towards goal. Continue goal. Pt current nutrition is Regular+[place] BID+Enlive BID. Nutrition recommendation: Agree Last recorded weight is 56.3 kg (recommend new wt) Bowel Motility: Daily formed BM each day Labs Reviewed:Hgb 8.9, Hct 28.9 Meds Noted:Megace, Oscal, Lomotil, Fe, Lasix, Prednisone Additional Notes: Pt with an average of 63% intake of meals over the last five meals. Appetite improved and bowels moving normally. Supplements providing additional nutrition for wound healing. We will continue to monitor every 5 days
--- NOTE | 2020-05-05 16:13 | PM.IMPN ---
Progress Note: A&P Assessment and Plan (1) Vasculitis: Code(s): I77.6 - Arteritis, unspecified Status: Acute Assessment and Plan: -----Continue steroids. Unsure of the etiology at this time, could be due to cancer or chemo. Cryoglobulin and SILVIA still pending. Hep C neg. UA neg for protein and albumin only midly low and likely not cause of swelling. Continue 30mg of prednisone daily at this time. Continue Ancef for bacterial infection that could be secondary to excoriation. Appreciate Dr. Sorenson recommendations (2) Cellulitis of leg: Qualifiers: Laterality: unspecified laterality Qualified Code(s): L03.119 - Cellulitis of unspecified part of limb Code(s): L03.119 - Cellulitis of unspecified part of limb Status: Acute Assessment and Plan: ------ see above. Patient does have strong pulses in his lower extremities but has a history of arterial disease seen on arterial dopplers. (3) Arterial insufficiency: Code(s): I77.1 - Stricture of artery Status: Chronic Assessment and Plan: ------ consulted. continue aspirin. (4) Bilateral lower extremity edema: Code(s): R60.0 - Localized edema Status: Acute Assessment and Plan: ------ Multifactorial, could be due to vasculitis, steroids, and cancer. No DVTs noted. Lasix restarted 05/03 and will continue 40mg IV daily as long as bp allows. pt also has wound on his coccyx and is getting triple care barrier antifungal cream. (5) Anemia: Code(s): D64.9 - Anemia, unspecified Status: Acute Assessment and Plan: ----- hemoglobin stable, likely due to cancer. f/u with hematology (6) Hypertensive heart disease without congestive heart failure: Code(s): I11.9 - Hypertensive heart disease without heart failure Status: Acute Assessment and Plan: ------- last blood pressure noted to be 85/50. I called the nurse and she is going to recheck this. On my exam patient was and symptomatic and did not have any chest pain, dizziness or lightheadedness. Have added parameters to all of his hypertensive and pain medications. I have asked the nurse to watch him closely. (7) Hyperlipidemia: Qualifiers: Hyperlipidemia type: unspecified Qualified Code(s): E78.5 - Hyperlipidemia, unspecified Code(s): E78.5 - Hyperlipidemia, unspecified Status: Acute Assessment and Plan: -------Patient is on pravastatin. (8) Acute hypokalemia: Code(s): E87.6 - Hypokalemia Status: Acute Assessment and Plan: ------patient is on daily potassium replace as necessary. (9) Cancer, metastatic to bone: Code(s): C79.51 - Secondary malignant neoplasm of bone Status: Chronic Assessment and Plan: Follows with Dr. Sorenson. Dr Sorenson states if can not get insurance approval for cabazitaxel will probable move to hospice care Subjective Date/time seen: 05/05/20 16:13 Interval history: Pt is a 69-year-old male here for vasculitis and lower extremity swelling. Patient was seen today and says his pain and he is tired. No complaints of CP, SOB, diarrhea, constipation, fevers, or chills. Exam Narrative: Exam Narrative: General: Elderly patient resting comfortably in the bed in no acute distress HEENT: normocephalic Neck: supple Neuro: Alert and oriented x4 CV:RRR Resp:CTA Abd: Soft, non distended. No pain to palpation. Positive bowel sounds Extremities: Vasculitis like petechiae rash has improved on bilateral legs. Legs improved today with less scaling and open wounds covered. Pulses intact by doppler. Warm to touch. 1+ edema up the shins Objective Data Vital Signs Vital Signs: Vital Signs - 24 hr 05/04/20 20:00 05/04/20 22:00 05/05/20 06:00 Temperature 98.5 F 98.3 F Pulse Rate 81 81 70 Respiratory Rate 16 16 18 Blood Pressure 121/58 L 120/66 Puls
[2020-05-05 16:22] VITALS: BP 95/54
[2020-05-05 20:00] VITALS: BP 80/48; PULSE 68
[2020-05-05] MEDS: PRAVASTATIN SODIUM 20 MG TABLET 80 MG PO (21:57)
[2020-05-05 22:00] VITALS: BP 80/42; PULSE 77; RESP 18; TEMP 36.8; O2SAT 99
[2020-05-06] VITALS (14 sets, daily range): BP systolic 78–121; BP diastolic 43–71; PULSE 70–95; RESP 16–20; TEMP 36–36.7; O2SAT 95–100
[2020-05-06 06:41] LABS: Hematocrit 30.4 % (42.0-52.0); Hemoglobin 9.1 g/dL (14.0-18.0); Mean Corpuscular HGB Conc 29.9 g/dl (32-36); Mean Corpuscular Hemoglobin 26.5 pg (26-34); Mean Corpuscular Volume 88.6 fl (80-100); Mean Platelet Volume 11.9 fl (7.4-10.4); Platelet Count Result 210 k/mm3 (150-375); Red Blood Count 3.43 M/mm3 (4.6-6.20); Red Cell Distribution Width 20.4 % (11.5-14.5); White Blood Count 12.2 K/mm3 (4.5-10.0)
[2020-05-06 06:53] LABS: NT Pro B Type Natriuretic Pept 3070 PG/ML (5-100)
[2020-05-06 07:04] LABS: Anion Gap 4 mmol/L (8-16); Blood Urea Nitrogen 36 mg/dL (9-20); CRP 16.2 mg/dL (<1.0); Calcium 8.6 mg/dL (8.4-10.2); Carbon Dioxide 30 mmol/L (22-30); Chloride 103 mmol/L (98-107); Estimated CRCL calculation 55 ml/min; Estimated Glomerular Filt Rate > 60; Glucose 117 mg/dL (75-110); Potassium 4.6 mmol/L (3.4-5.0); Sodium 137 mmol/L (137-145)
[2020-05-06] MEDS: predniSONE 10 MG TABLET 30 MG PO (08:55)
[2020-05-06] MEDS: FERROUS SULFATE 324 MG TABLET PO (08:56)
[2020-05-06] MEDS: MEGESTROL ACETATE (*CHEMO) ORAL SUSP 40 MG/ML SYR 800 MG PO (08:56)
[2020-05-06] MEDS: ASPIRIN 325 MG TABLET PO (08:56)
[2020-05-06] MEDS: ENOXAPARIN 40 MG/0.4 ML SYRINGE SUB-Q (08:56)
[2020-05-06] MEDS: POTASSIUM CHLORIDE 20 MEQ TABLET.ER PO (08:57)
[2020-05-06] MEDS: KETOROLAC 15 MG/ML VIAL (*BKC) IV PUSH ×3 (09:43→23:29)
[2020-05-06] MEDS: SODIUM CHLORIDE 0.9% IV 1,000 ML 100 ML IV CONT (09:47)
[2020-05-06 10:24] LABS: Lactic Acid Reflex 4.1 mmol/L (0.7-2.1)
--- NOTE | 2020-05-06 11:46 | PM.IMPN ---
Progress Note: A&P Assessment and Plan (1) Sepsis: Code(s): A41.9 - Sepsis, unspecified organism Status: Acute Assessment and Plan: ----- patient appears to be in sepsis with hypotension, elevated white blood cell count, and elevated lactic acid. The patient has significant flank/abdominal pain that is new from him. Stat CT of the abdomen pelvis shows constipation but no etiology for his symptoms. This pain could be due to not getting his pain medications and his normal cancer pain. I will check a urine as well. lower extremities look unchanged, I do not suspect the wounds are causing the sepsis. cefazolin were stopped this morning , Zosyn was started. Is also possible the hypotension is she from receiving too much Lasix and narcotic pain medications. He did not receive any blood pressure medications this morning. However, his CRP went from 6-26 and lactic acid is 4.1, consider infection and we will cover was Zosyn at this time. Cannot rule out ischemia. continue IV fluids, antibiotics and workup. Will redraw a lactic acid in 2 hours from initial lab. - Of note, the daughter and patient do not want pressors but they are unsure about his code status at this time. I talked to them about the importance of making a decision and the poor prognosis. Because of his advanced cancer and worsening clinical state, I am concerned that he may not recover. They understand this and are going to let me know about a code status but will continue full code until then. They did talk about hospice outpatient (2) Elevated lactic acid level: Code(s): R79.89 - Other specified abnormal findings of blood chemistry Status: Acute Assessment and Plan: ----- elevated lactic acid 4.1. redraw per protocol. Continue fluids (3) Hypotension: Code(s): I95.9 - Hypotension, unspecified Status: Acute Assessment and Plan: ----- last blood pressure 78/43. Blood pressure medications on hold as well as pain medications. Continue IV fluids (4) Vasculitis: Code(s): I77.6 - Arteritis, unspecified Status: Acute Assessment and Plan: -----Continue steroids. Unsure of the etiology at this time, could be due to cancer or chemo. Cryoglobulin and SILVIA still pending. Hep C neg. UA neg for protein and albumin only midly low and likely not cause of swelling. Continue 30mg of prednisone daily at this time. (5) Cellulitis of leg: Qualifiers: Laterality: unspecified laterality Qualified Code(s): L03.119 - Cellulitis of unspecified part of limb Code(s): L03.119 - Cellulitis of unspecified part of limb Status: Acute Assessment and Plan: ------ see above. Patient does have strong pulses in his lower extremities but has a history of arterial disease seen on arterial dopplers. (6) Arterial insufficiency: Code(s): I77.1 - Stricture of artery Status: Chronic Assessment and Plan: ------ consulted. continue aspirin. (7) Bilateral lower extremity edema: Code(s): R60.0 - Localized edema Status: Acute Assessment and Plan: ------ Multifactorial, could be due to vasculitis, steroids, and cancer. No DVTs noted. Lasix restarted 05/03 and will continue 40mg IV daily as long as bp allows. pt also has wound on his coccyx and is getting triple care barrier antifungal cream. (8) Anemia: Code(s): D64.9 - Anemia, unspecified Status: Acute Assessment and Plan: ----- hemoglobin stable, likely due to cancer. f/u with hematology (9) Hypertensive heart disease without congestive heart failure: Code(s): I11.9 - Hypertensive heart disease without heart failure Status: Acute Assessment and Plan: ------- blood pressure medications on hold. See above (10) Hyperlipidemia: Qualifiers: Hyperlipidemia type: unspecified Qualified Code(s
[2020-05-06 12:27] LABS: Hematocrit 30.1 % (42.0-52.0); Mean Corpuscular HGB Conc 29.9 g/dl (32-36); Mean Corpuscular Hemoglobin 26.9 pg (26-34); Mean Corpuscular Volume 90.1 fl (80-100); Mean Platelet Volume 11.7 fl (7.4-10.4); Platelet Count Result 184 k/mm3 (150-375); Red Blood Count 3.34 M/mm3 (4.6-6.20); Red Cell Distribution Width 20.3 % (11.5-14.5); White Blood Count 11.1 K/mm3 (4.5-10.0)
[2020-05-06] MEDS: SODIUM CHLORIDE 0.9% IV 500 ML IV CONT (12:28)
--- NOTE | 2020-05-06 12:33 | PCOTNOTE ---
Per RN, patient not feeling well and did not sleep last night, let rest. Will continue plan of care tomorrow 05/07/2020.
[2020-05-06 12:44] LABS: Alanine Aminotransferase 13 U/L (4-50); Albumin Level 2.5 g/dL (3.5-5.1); Alkaline Phosphatase 427 U/L (38-126); Anion Gap 7 mmol/L (8-16); Aspartate Amino Transferase 38 U/L (17-59); Bilirubin,Total 0.4 mg/dL (0.2-1.3); Blood Urea Nitrogen 36 mg/dL (9-20); Calcium 8.2 mg/dL (8.4-10.2); Carbon Dioxide 25 mmol/L (22-30); Chloride 104 mmol/L (98-107); Estimated CRCL calculation 61 ml/min; Estimated Glomerular Filt Rate > 60; Glucose 94 mg/dL (75-110); Potassium 3.5 mmol/L (3.4-5.0); Sodium 136 mmol/L (137-145)
[2020-05-06 12:52] LABS: Band Neutrophils Percent 1 % (0-6); Lymphocytes Absolute Manual 0.22 K/mm3 (1.1-4.5); Neutrophils Absolute Manual 10.87 K/mm3 (1.3-6.7); Neutrophils Percent Manual 97 % (46-73); Platelet Estimate Adequate (Adequate); Total Cells Counted 100
[2020-05-06 12:53] LABS: Hypochromasia 2+ (NORMAL); Target Cells 1+ (NORMAL)
[2020-05-06 13:08] LABS: Reflex Lactic Acid Yes or No Add Lactic
[2020-05-06] MEDS: BETAMETHASONE/CLOTRIMAZOLE CR 15 GM TUBE 1 APPLIC TOPICAL ×2 (13:19→23:22)
[2020-05-06] MEDS: EUCERIN CREAM 120 GM JAR 1 APPLIC TOPICAL (13:19)
[2020-05-06] MEDS: SILVERGEL (ELTA) 45 ML 1 APPLIC TOPICAL (13:20)
[2020-05-06 13:39] LABS: Lactic Acid 2.8 mmol/L (0.7-2.1)
--- NOTE | 2020-05-06 13:44 | PM.PNCARD ---
Progress Note: A&P Assessment and Plan (1) Vasculitis: Code(s): I77.6 - Arteritis, unspecified Status: Acute (2) Cellulitis of leg: Qualifiers: Laterality: unspecified laterality Qualified Code(s): L03.119 - Cellulitis of unspecified part of limb Code(s): L03.119 - Cellulitis of unspecified part of limb Status: Acute Assessment and Plan: management per PC (3) Anemia: Code(s): D64.9 - Anemia, unspecified Status: Acute (4) Hyperlipidemia: Qualifiers: Hyperlipidemia type: unspecified Qualified Code(s): E78.5 - Hyperlipidemia, unspecified Code(s): E78.5 - Hyperlipidemia, unspecified Status: Acute (5) Coronary artery disease involving [place] coronary artery of [place] heart: Qualifiers: Associated angina: without angina Qualified Code(s): I25.10 - Atherosclerotic heart disease of [place] coronary artery without angina pectoris Code(s): I25.10 - Atherosclerotic heart disease of [place] coronary artery without angina pectoris Status: Acute (6) Cancer, metastatic to bone: Code(s): C79.51 - Secondary malignant neoplasm of bone Status: Chronic (7) Malignant neoplasm of prostate: Code(s): C61 - Malignant neoplasm of prostate Status: Acute (8) PVD (peripheral vascular disease): Code(s): I73.9 - Peripheral vascular disease, unspecified Status: Acute Assessment and Plan: LE US showed small vessel disease cont meds Subjective Date/time seen: 05/06/20 13:44 Pt still little confused. No symptoms. Pt was seen and examined, chart was reviewed, case d/w pt's nurse. Review of Systems Review of Systems: All systems reviewed & are unremarkable except as noted in HPI and below Constitutional: Constitutional: Reports as per HPI Eyes: Eyes: Reports as per HPI ENT: Reports system reviewed and no additional complaints, except as documented and Reports as per HPI Cardiovascular: Cardiovascular: Reports as per HPI Respiratory: Respiratory: Reports as per HPI Gastrointestinal: Gastrointestinal: Reports as per HPI Genitourinary: Genitourinary: Reports as per HPI Musculoskeletal: Musculoskeletal: Reports as per HPI Exam Const: General: no acute distress Nutritional Appearance: well nourished Orientation/consciousness: patient oriented x3 HENMT: Head: normal to inspection and atraumatic Ears: hearing grossly normal bilaterally Face and sinus: normal facial exam Eyes: General: appearance normal, both eyes and all related structures Pupils: Equal, round and reactive pupils present EOM: EOMs intact bilaterally Neck: Neck: supple Chest: Chest palpation & inspection: normal inspection of the chest Resp: Effort & Inspection: normal respiratory effort and no respiratory distress Auscultation: clear to auscultation bilaterally Cardio: Jugular venous distension: no JVD Rate: regular rate Heart sounds: S1 normal heart sound present, S2 normal heart sound present and no murmurs Peripheral pulses: Peripheral pulses 2+ throughout GI: GI Palp: No abdominal tenderness Auscultation: normal bowel sounds Skin: General skin exam: normal color Neuro: General: patient oriented x3 Cranial nerves: Yes Equal, round and reactive pupils present Extrem: General: no clubbing, cyanosis or edema and other (reddnes below knee) Objective Data Vital Signs Vital Signs: Vital Signs - 24 hr 05/05/20 14:00 05/05/20 16:22 05/05/20 20:00 Temperature 36.9 C Pulse Rate 71 68 Respiratory Rate 16 Blood Pressure 85/50 L 95/54 L 80/48 L Pulse Oximetry 99 05/05/20 22:00 05/06/20 02:00 05/06/20 06:00 Temperature 36.8 C 36.7 C Pulse Rate 77 70 88 Respiratory Rate 18 18 Blood Pressure 80/42 L 94/56 L 97/54 L Pulse Oximetry 99 98 05/06/20 09:30 05/06/20 13:31 Temperature Pulse Rate Respiratory Rate Blood Pressure 78/43 L 113/71 Pulse Oximetry Intake/Output In
[2020-05-06 14:17] LABS: Add Urine Microscopic? YES; Appearance Urine Clear (Clear); Bilirubin Urine Negative (Negative); Blood Urine 2+ (Negative); Color Urine Yellow (Yellow); Glucose Urine UA Negative (Negative); Ketones Urine Negative (Negative); Leukocyte Esterase Ur Negative LEU/UL (Negative); Mucus Urine Rare /lpf; Nitrate Urine Negative (Negative); Protein Urine Negative (Negative); RBC Urine 21-50 /hpf (0-2); Specific Grav Ur 1.015 (1.001-1.035); Urobilinogen Urine Negative mg/dL (<2.0); WBC Urine 0-3 /hpf
--- NOTE | 2020-05-06 14:35 | PC.NURSE ---
This patient, Urbano Guerra, was received from [facility] into [facility] 200 on 05/06/20 at 1435. Personal belongings list checked and signed. Patient/family oriented to unit policies and routines
--- NOTE | 2020-05-06 14:47 | PC.NURSE ---
Pt has been transfered to IMU. Pt is now in room 200. Report has been called to receiving nurse, and all medications were taken with pt to IMU.
[2020-05-06] MEDS: hetaSTARCH 6%/NACL 500 ML 250 ML IV CONT (15:52)
[2020-05-06 17:04] LABS: Lactic Acid Reflex 2.1 mmol/L (0.7-2.1)
[2020-05-06] MEDS: PRAVASTATIN SODIUM 20 MG TABLET 80 MG PO (20:54)
[2020-05-07] VITALS (22 sets, daily range): BP systolic 83–131; BP diastolic 56–85; PULSE 73–124; RESP 12–20; TEMP 36–37.2; O2SAT 98–100
[2020-05-07 04:22] LABS: Cryoglobulin, QL Negative (Negative)
[2020-05-07 04:23] LABS: Basophils Percent Auto 0.1 % (0.2-1.2); Hematocrit 23.6 % (42.0-52.0); Hemoglobin 7.4 g/dL (14.0-18.0); Immature Granulocyte Absolute 0.08 K/mm3 (0.00-0.031); Immature Granulocyte Percent A 0.8 % (0-0.5); Lymphocytes Absolute Auto 0.37 K/mm3 (0.9-3.2); Lymphocytes Percent Auto 3.6 % (18.3-44.2); Mean Corpuscular HGB Conc 31.4 g/dl (32-36); Mean Corpuscular Volume 86.1 fl (80-100); Mean Platelet Volume 11.2 fl (7.4-10.4); Monocytes Absolute Auto 0.4 K/mm3 (0.1-0.6); Monocytes Percent Auto 3.8 % (2.6-8.5); Neutrophils Absolute Auto 9.5 K/mm3 (1.3-6.7); Neutrophils Percent Auto 91.7 % (45.5-73.1); Platelet Count Result 146 k/mm3 (150-375); Red Blood Count 2.74 M/mm3 (4.6-6.20); Red Cell Distribution Width 20.2 % (11.5-14.5); White Blood Count 10.3 K/mm3 (4.5-10.0)
[2020-05-07 04:42] LABS: Alanine Aminotransferase 11 U/L (4-50); Alkaline Phosphatase 348 U/L (38-126); Anion Gap 4 mmol/L (8-16); Aspartate Amino Transferase 31 U/L (17-59); Bilirubin,Total 0.4 mg/dL (0.2-1.3); Blood Urea Nitrogen 37 mg/dL (9-20); Calcium 7.8 mg/dL (8.4-10.2); Carbon Dioxide 27 mmol/L (22-30); Chloride 106 mmol/L (98-107); Estimated CRCL calculation 55 ml/min; Estimated Glomerular Filt Rate > 60; Glucose 89 mg/dL (75-110); Magnesium 1.7 mg/dL (1.6-2.3); Potassium 3.3 mmol/L (3.4-5.0); Sodium 137 mmol/L (137-145)
[2020-05-07 04:47] LABS: Hypochromasia 1+ (NORMAL); Platelet Estimate Adequate (Adequate); Target Cells 1+ (NORMAL)
[2020-05-07 04:54] LABS: CRP 19.4 mg/dL (<1.0)
[2020-05-07] MEDS: KETOROLAC 15 MG/ML VIAL (*BKC) IV PUSH ×2 (09:05→16:35)
[2020-05-07] MEDS: ASPIRIN 325 MG TABLET PO (09:05)
[2020-05-07] MEDS: POTASSIUM CHLORIDE 20 MEQ TABLET 40 MEQ PO (09:06)
[2020-05-07] MEDS: FERROUS SULFATE 324 MG TABLET PO (09:06)
[2020-05-07] MEDS: predniSONE 10 MG TABLET 30 MG PO (09:06)
[2020-05-07] MEDS: BETAMETHASONE/CLOTRIMAZOLE CR 15 GM TUBE 1 APPLIC TOPICAL ×2 (09:07→20:43)
[2020-05-07] MEDS: MEGESTROL ACETATE (*CHEMO) ORAL SUSP 40 MG/ML SYR 800 MG PO (09:07)
[2020-05-07] MEDS: ENOXAPARIN 40 MG/0.4 ML SYRINGE SUB-Q (09:07)
[2020-05-07] MEDS: EUCERIN CREAM 120 GM JAR 1 APPLIC TOPICAL (09:08)
[2020-05-07] MEDS: SILVERGEL (ELTA) 45 ML 1 APPLIC TOPICAL (09:08)
--- NOTE | 2020-05-07 10:04 | PM.IMPN ---
Progress Note: A&P Assessment and Plan (1) Sepsis: Code(s): A41.9 - Sepsis, unspecified organism Status: Acute Assessment and Plan: -----Improved with IV fluids, abx, and holding of lasix. Source of infx unclear, will check CXR. Continue abx. CT of the abdomen pelvis shows constipation but no etiology for his symptoms yesterday. UA no infx. lower extremities look unchanged, I do not suspect the wounds are causing the sepsis. Is also possible the hypotension is she from receiving too much Lasix and narcotic pain medications. However, his CRP went from 6 to 29. Lactic back down to normal. (2) Elevated lactic acid level: Code(s): R79.89 - Other specified abnormal findings of blood chemistry Status: Acute Assessment and Plan: ----- Resolved. Pt bp is WNL. monitor. (3) Hypotension: Code(s): I95.9 - Hypotension, unspecified Status: Acute Assessment and Plan: ----- last blood pressure 127/82. Blood pressure medications on hold and pain meds have parameters. (4) Vasculitis: Code(s): I77.6 - Arteritis, unspecified Status: Acute Assessment and Plan: -----Continue steroids. Unsure of the etiology at this time, could be due to cancer or chemo. Cryoglobulin and SILVIA still pending. Hep C neg. UA neg for protein and albumin only midly low and likely not cause of swelling. Continue 30mg of prednisone daily at this time. (5) Cellulitis of leg: Qualifiers: Laterality: unspecified laterality Qualified Code(s): L03.119 - Cellulitis of unspecified part of limb Code(s): L03.119 - Cellulitis of unspecified part of limb Status: Acute Assessment and Plan: ------ see above. Patient does have strong pulses in his lower extremities but has a history of arterial disease seen on arterial dopplers. (6) Arterial insufficiency: Code(s): I77.1 - Stricture of artery Status: Chronic Assessment and Plan: ------ consulted. continue aspirin. (7) Bilateral lower extremity edema: Code(s): R60.0 - Localized edema Status: Acute Assessment and Plan: ------ Multifactorial, could be due to vasculitis, steroids, and cancer. No DVTs noted. Lasix restarted 05/03 and will continue 40mg IV daily as long as bp allows. pt also has wound on his coccyx which is unchanged and is getting triple care barrier antifungal cream. (8) Anemia: Code(s): D64.9 - Anemia, unspecified Status: Acute Assessment and Plan: ----- hemoglobin down a bit to 7.4 today. No reprots of dark stool but had low bp yesterday so will watch for black or bloddy stool. Protonix added since pt is getting steroids. Re-check at 12. transfuse if <7. (9) Hypertensive heart disease without congestive heart failure: Code(s): I11.9 - Hypertensive heart disease without heart failure Status: Acute Assessment and Plan: ------- blood pressure medications on hold. See above (10) Hyperlipidemia: Qualifiers: Hyperlipidemia type: unspecified Qualified Code(s): E78.5 - Hyperlipidemia, unspecified Code(s): E78.5 - Hyperlipidemia, unspecified Status: Acute Assessment and Plan: -------Patient is on pravastatin. (11) Acute hypokalemia: Code(s): E87.6 - Hypokalemia Status: Acute Assessment and Plan: ------ resolved, monitor. Oral potassium has been discontinued (12) Cancer, metastatic to bone: Code(s): C79.51 - Secondary malignant neoplasm of bone Status: Chronic Assessment and Plan: Follows with Dr. Sorenson. Dr Sorenson states if can not get insurance approval for cabazitaxel will probable move to hospice care Subjective Date/time seen: 05/07/20 10:04 Interval history: Pt is a 69-year-old male here for vasculitis and lower extremity swelling. Patient was seen today and has
[2020-05-07] MEDS: METOPROLOL TARTRATE 12.5 MG TABLET PO ×2 (10:30→20:43)
[2020-05-07 12:10] LABS: Hematocrit 23.9 % (42.0-52.0); Hemoglobin 7.4 g/dL (14.0-18.0)
[2020-05-07] MEDS: PANTOPRAZOLE 40 MG TABLET PO ×2 (12:24→20:43)
--- NOTE | 2020-05-07 13:38 | PM.PNCARD ---
Progress Note: A&P Assessment and Plan (1) Vasculitis: Code(s): I77.6 - Arteritis, unspecified Status: Acute (2) Cellulitis of leg: Qualifiers: Laterality: unspecified laterality Qualified Code(s): L03.119 - Cellulitis of unspecified part of limb Code(s): L03.119 - Cellulitis of unspecified part of limb Status: Acute (3) Anemia: Code(s): D64.9 - Anemia, unspecified Status: Acute (4) Hyperlipidemia: Qualifiers: Hyperlipidemia type: unspecified Qualified Code(s): E78.5 - Hyperlipidemia, unspecified Code(s): E78.5 - Hyperlipidemia, unspecified Status: Acute (5) Cancer, metastatic to bone: Code(s): C79.51 - Secondary malignant neoplasm of bone Status: Chronic (6) Coronary artery disease involving [place] coronary artery of [place] heart: Qualifiers: Associated angina: without angina Qualified Code(s): I25.10 - Atherosclerotic heart disease of [place] coronary artery without angina pectoris Code(s): I25.10 - Atherosclerotic heart disease of [place] coronary artery without angina pectoris Status: Acute (7) Malignant neoplasm of prostate: Code(s): C61 - Malignant neoplasm of prostate Status: Acute (8) PVD (peripheral vascular disease): Code(s): I73.9 - Peripheral vascular disease, unspecified Status: Acute Assessment and Plan: LE US showed small vessel disease cont meds Subjective Date/time seen: 05/07/20 13:38 Pt still little confused. Denies CP, SOB or palpitations. Pt was seen and examined, chart reviewed, case d/w pt's family and his nurse. Review of Systems Review of Systems: All systems reviewed & are unremarkable except as noted in HPI and below Constitutional: Constitutional: Reports as per HPI Eyes: Eyes: Reports as per HPI ENT: Reports system reviewed and no additional complaints, except as documented and Reports as per HPI Cardiovascular: Cardiovascular: Reports as per HPI Respiratory: Respiratory: Reports as per HPI Gastrointestinal: Gastrointestinal: Reports as per HPI Genitourinary: Genitourinary: Reports as per HPI Musculoskeletal: Musculoskeletal: Reports as per HPI Exam Const: General: no acute distress Nutritional Appearance: well nourished Orientation/consciousness: patient oriented x3 HENMT: Head: normal to inspection and atraumatic Ears: hearing grossly normal bilaterally Face and sinus: normal facial exam Eyes: General: appearance normal, both eyes and all related structures Pupils: Equal, round and reactive pupils present EOM: EOMs intact bilaterally Neck: Neck: supple Chest: Chest palpation & inspection: normal inspection of the chest Resp: Effort & Inspection: normal respiratory effort and no respiratory distress Auscultation: clear to auscultation bilaterally Cardio: Jugular venous distension: no JVD Rate: regular rate Heart sounds: S1 normal heart sound present, S2 normal heart sound present and no murmurs Peripheral pulses: Peripheral pulses 2+ throughout GI: GI Palp: No abdominal tenderness Auscultation: normal bowel sounds Skin: General skin exam: normal color Neuro: General: patient oriented x3 Cranial nerves: Yes Equal, round and reactive pupils present Extrem: General: no clubbing, cyanosis or edema and other (reddness below knee) Objective Data Vital Signs Vital Signs: Vital Signs - 24 hr 05/06/20 14:00 05/06/20 14:49 05/06/20 15:00 Temperature 36.7 C 36.2 C L Pulse Rate 91 86 89 Respiratory Rate 18 18 Blood Pressure 113/71 99/57 L Pulse Oximetry 95 100 05/06/20 15:50 05/06/20 16:00 05/06/20 18:21 Temperature 36.0 C L Pulse Rate 85 86 80 Respiratory Rate 16 Blood Pressure 100/65 Pulse Oximetry 99 05/06/20 19:37 05/06/20 20:00 05/06/20 22:00 Temperature 36.4 C L Pulse Rate 92 95 94 Respiratory Rate 20 Blood Pressure 121/64 Pulse Oximetry 100 05/06/20 23:36 0
--- NOTE | 2020-05-07 15:21 | PCPTNOTE ---
Patient has experienced a decline in status moving from 311 to 200. Spoke with RYAN Nguyen, who stated that it was o.k. to continue therapy with this patient....attempted re-assess in the afternoon, and patient refused...he asked if it could be done tomorrow...will see tomorrow as able
[2020-05-07 17:46] LABS: Hematocrit 21.6 % (42.0-52.0)
[2020-05-07 17:49] LABS: Hemoglobin 6.7 g/dL (14.0-18.0)
[2020-05-07] MEDS: SODIUM CHLORIDE 0.9% IV 1,000 ML 70 ML IV CONT (18:00)
[2020-05-07] MEDS: PRAVASTATIN SODIUM 20 MG TABLET 80 MG PO (20:43)
[2020-05-07 22:45] LABS: Anti Nuclear Antibody Pattern Nuclear, Speckled
[2020-05-07] MEDS: SODIUM CHLORIDE 0.9% IV 250 ML 30 ML IV CONT (22:58)
[2020-05-07] MEDS: TUBING, BLOOD PLUM PUMP TUBING 1 EACH XX (23:47)
[2020-05-08] VITALS (18 sets, daily range): BP systolic 102–131; BP diastolic 55–85; PULSE 70–96; RESP 14–20; TEMP 36.1–36.8; O2SAT 99
[2020-05-08 00:44] LABS: Hematocrit 26.4 % (42.0-52.0); Hemoglobin 8.4 g/dL (14.0-18.0)
[2020-05-08 04:51] LABS: Hematocrit 25.9 % (42.0-52.0); Hemoglobin 8.2 g/dL (14.0-18.0); Mean Corpuscular HGB Conc 31.7 g/dl (32-36); Mean Corpuscular Hemoglobin 27.5 pg (26-34); Mean Corpuscular Volume 86.9 fl (80-100); Mean Platelet Volume 11.3 fl (7.4-10.4); Platelet Count Result 143 k/mm3 (150-375); Red Blood Count 2.98 M/mm3 (4.6-6.20); White Blood Count 12.8 K/mm3 (4.5-10.0)
[2020-05-08 05:06] LABS: Anion Gap 3 mmol/L (8-16); Blood Urea Nitrogen 36 mg/dL (9-20); Calcium 7.8 mg/dL (8.4-10.2); Carbon Dioxide 26 mmol/L (22-30); Chloride 104 mmol/L (98-107); Estimated CRCL calculation 61 ml/min; Estimated Glomerular Filt Rate > 60; Glucose 98 mg/dL (75-110); Magnesium 1.7 mg/dL (1.6-2.3); Phosphorus 1.4 mg/dL (2.5-4.5); Potassium 3.4 mmol/L (3.4-5.0); Sodium 133 mmol/L (137-145)
[2020-05-08] MEDS: METOPROLOL TARTRATE 12.5 MG TABLET PO ×2 (08:24→19:55)
[2020-05-08] MEDS: ASPIRIN 325 MG TABLET PO (08:25)
[2020-05-08] MEDS: FERROUS SULFATE 324 MG TABLET PO (08:25)
[2020-05-08] MEDS: predniSONE 10 MG TABLET 30 MG PO (08:25)
[2020-05-08] MEDS: MEGESTROL ACETATE (*CHEMO) ORAL SUSP 40 MG/ML SYR 800 MG PO (08:26)
[2020-05-08] MEDS: EUCERIN CREAM 120 GM JAR 1 APPLIC TOPICAL (08:26)
[2020-05-08] MEDS: BETAMETHASONE/CLOTRIMAZOLE CR 15 GM TUBE 1 APPLIC TOPICAL ×2 (08:27→19:55)
[2020-05-08] MEDS: SILVERGEL (ELTA) 45 ML 1 APPLIC TOPICAL (08:27)
[2020-05-08 10:08] LABS: IFOB Positive Control Positive; Immunochemical Fecal Occult Bl Positive (N)
--- NOTE | 2020-05-08 10:39 | PCPTNOTE ---
Attempted PT reeval. Pt states he's too tired and just wants to sleep. Will try again at later time.
--- NOTE | 2020-05-08 10:39 | PCOTNOTE ---
Patient refusing therapy this date. Patient potentially going hospice, but wants to discuss with family. Nursing notified. Will attempt therapy as appropriate.
--- NOTE | 2020-05-08 10:47 | PM.PNCARD ---
Progress Note: A&P Assessment and Plan (1) Vasculitis: Code(s): I77.6 - Arteritis, unspecified Status: Acute (2) Cellulitis of leg: Qualifiers: Laterality: unspecified laterality Qualified Code(s): L03.119 - Cellulitis of unspecified part of limb Code(s): L03.119 - Cellulitis of unspecified part of limb Status: Acute Assessment and Plan: - Management as per primary service. (3) Anemia: Code(s): D64.9 - Anemia, unspecified Status: Acute (4) Hyperlipidemia: Qualifiers: Hyperlipidemia type: unspecified Qualified Code(s): E78.5 - Hyperlipidemia, unspecified Code(s): E78.5 - Hyperlipidemia, unspecified Status: Acute (5) Cancer, metastatic to bone: Code(s): C79.51 - Secondary malignant neoplasm of bone Status: Chronic (6) Coronary artery disease involving [place] coronary artery of [place] heart: Qualifiers: Associated angina: without angina Qualified Code(s): I25.10 - Atherosclerotic heart disease of [place] coronary artery without angina pectoris Code(s): I25.10 - Atherosclerotic heart disease of [place] coronary artery without angina pectoris Status: Acute Assessment and Plan: -Patient denies chest pain. -continue aspirin and metoprolol. (7) Malignant neoplasm of prostate: Code(s): C61 - Malignant neoplasm of prostate Status: Acute (8) PVD (peripheral vascular disease): Code(s): I73.9 - Peripheral vascular disease, unspecified Status: Acute Assessment and Plan: LE US showed small vessel disease cont meds Additional Plan Subjective Date/time seen: 05/08/20 10:47 Interval history: Pt is a 69-year-old male here for vasculitis, cellulitis, and lower extremity swelling. He reports leg weakness and pain. He denies chest pain or dyspnea. Patient was seen and examined, chart reviewed, case discussed with nurse. Exam Narrative: Exam Narrative: Awake alert oriented x3 not in acute distress, and [id number] discomfort due to pain in the legs, and very ill-looking Neck is supple no obvious JVD, no carotid bruit Chest: decreased breathing sound bilaterally noted Cardiovascular: Regular rate and rhythm, 2/6 systolic murmur noted left sternal border Abdomen: Soft nontender bowel sounds positive Extremities: significant skin discoloration indicative of venous stasis, multiple scaling lesions, and multiple areas of skin breakdown on ulceration with losing more so noted on the front of the right leg. He has no pulses distally at the anterior tibial, he has very faint posterior tibial very faint popliteal pulse Const: General: no acute distress Nutritional Appearance: well nourished Orientation/consciousness: patient oriented x3 HENMT: Head: normal to inspection and atraumatic Ears: hearing grossly normal bilaterally Face and sinus: normal facial exam Eyes: General: appearance normal, both eyes and all related structures Pupils: Equal, round and reactive pupils present EOM: EOMs intact bilaterally Neck: Neck: supple Chest: Chest palpation & inspection: normal inspection of the chest Resp: Effort & Inspection: normal respiratory effort and no respiratory distress Auscultation: clear to auscultation bilaterally Cardio: Jugular venous distension: no JVD Rate: regular rate Heart sounds: S1 normal heart sound present, S2 normal heart sound present and no murmurs Peripheral pulses: Peripheral pulses 2+ throughout GI: Auscultation: normal bowel sounds Skin: General skin exam: normal color Neuro: General: patient oriented x3 Cranial nerves: Yes Equal, round and reactive pupils present Extrem: General: no clubbing, cyanosis or edema and other (reddness below knee) Objective Data Vital Signs Vital Signs: Vital Signs - 24 hr 05/07/20 12:00 05/07/20 14:02 05/07/20 16:00 Temperature 37.2 C Pulse Rate 79 82 87 Respiratory Rate 20 Blood
[2020-05-08] MEDS: PANTOPRAZOLE 40 MG TABLET PO ×2 (11:56→19:55)
[2020-05-08] MEDS: SODIUM CHLORIDE 0.9% IV 1,000 ML 70 ML IV CONT (11:58)
[2020-05-08] MEDS: KETOROLAC 15 MG/ML VIAL (*BKC) IV PUSH (11:58)
--- NOTE | 2020-05-08 16:41 | WPDONCPN ---
Progress Note: A/P - Additional Plan 1. 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 Patient has failed several therapies, most recently Taxotere. CT scan date 05/06/2020 showed extensive liver mets, widespread osseous disease disease, and new ascites/anasarca. His performance status is 3 and no other treatment options are available. I discussed 's recommendation for hospice with patient and daughter. She appears in favor, but patient has not yet decided. Will continue to follow regarding his decision. Continue pain control. HOLD Toradol given positive guaiac stool today. 2. Anemia. This could be related to progressive disease and possible GI bleed given positive guaiac. Continue PPI and HOLD NSAIDs. He received 1U PRBC for Hgb 6.7 and is 8.2 currently. He continues oral iron. 3. Vasculitis. Currently on prednisone. - Time Spent With Patient Total time spent is greater than 50% in coordination of care (as documented) at patient's floor/unit and/or counseling patient: 25 - 35 minutes Subjective Interval history: 69 yo WM who has been seeing Dr. Sorenson for metastatic prostate cancer and received multiple lines of treatment, most recently Taxotere. He presented to ER with weepy bilateral LE edema concerning for cellulitis and subsequently also found to have vasculitis. Additionally, LE arterial Doppler was suggestive of occlusion of Rt anterior tibial artery. He had little improvement on Lasix at home. He is on prednisone. His swelling has significantly improved since admission. He has wound care to his lower extremities BID. His main complaint is pain control, ie back and lower extremities. He is up in a chair at times. He states that he is eating, voiding and having BMs. He denies fever or chills, SOB, chest pain, n/v, or abdominal pain. His daughter, Hyun, is at the bedside and was interested in goals of his cancer care. Review of Systems - Review of Systems All systems reviewed & are unremarkable except as noted in HPI and bel - Neurologic Reports system reviewed and no additional complaints, except as documented, Reports hearing normal, Reports weakness, Denies numbness Exam Vital signs: Temp Pulse Resp BP Pulse Ox 36.8 C 81 18 113/65 99 05/08/20 11:45 05/08/20 16:00 05/08/20 11:45 05/08/20 11:45 05/08/20 16:00 - Constitutional no acute distress, cooperative - Routine HEENT Exam Head: Present: normal inspection Eye: Present: EOMI, normal appearance. Absent: scleral icterus - Routine Neck Exam Present: full ROM - Routine Cardiovascular Exam Cardiovascular: Present: RRR - Routine Abdominal Exam Present: normal bowel sounds, soft. Absent: mass, tenderness - Routine Extremities Exam Present: normal capillary refill Comments: Toes. Wrapped in gauze, drsg CD&I - Routine Neurological Exam Present: alert - Routine Psychiatric Exam Absent: normal affect Comments: Flat affect PN: Objective Data - Labs CBC & Chem 7: 05/08/20 04:26 05/08/20 04:26 Labs: Laboratory Results - last 24 hr 05/03/20 05/07/20 05/07/20 05:34 17:38 18:02 WBC RBC Hgb 6.7 L* Hct 21.6 L MCV MCH MCHC RDW Plt Count MPV Sodium Potassium Chloride Carbon Dioxide Anion Gap BUN Creatinine Estim Creat Clear Calc Estimated GFR Glucose Calcium Phosphorus Magnesium Stl Occult Blood (IFOB) SILVIA Screen Positive A SILVIA Titer 1:80 A SILVIA Pattern Nuclear, speckled Blood Type O Positive Antibody Screen Negative Crossmatch See Detail 05/08/20 05/08/20 05/08/20 00:25 04:26 04:26 WBC 12.8 H RBC 2.98 L Hgb 8.4 L 8.2 L Hct 26.4 L 25.9 L MCV 86.9 MCH 27.5 MCHC 31.7 L RDW 19.0 H Plt Count 143 L MPV 11.3 H Sodium 133 L Potassium 3.4 Chloride 104 Carbon Dioxide 26 Anion Gap 3 L BUN 36 H Creatinine 0.80 Estim Creat Clear Calc 61 E
--- NOTE | 2020-05-08 16:56 | PM.IMPN ---
Progress Note: A&P Assessment and Plan (1) Hypotension: Code(s): I95.9 - Hypotension, unspecified Status: Acute Assessment and Plan: ----- last blood pressure 113/65. Blood pressure medications on hold and pain meds have parameters. Much improved, continue IV fluids at a lower rate. Chest x-ray clear. May discontinue fluids if he does well overnight. (2) Vasculitis: Code(s): I77.6 - Arteritis, unspecified Status: Acute Assessment and Plan: ----- SILVIA positive 1:80 with speckled appearance. I have added additional workup such as complement, anti-dsDNA, anti Ballesteros, anti Ro in [place] and ANCA. Continue steroids. Cryglobin negative And hep C negative. UA neg for protein and albumin only midly low and likely not cause of swelling. Continue 30mg of prednisone daily at this time. Will need to follow-up with the social problems specialist (3) Cellulitis of leg: Qualifiers: Laterality: unspecified laterality Qualified Code(s): L03.119 - Cellulitis of unspecified part of limb Code(s): L03.119 - Cellulitis of unspecified part of limb Status: Acute Assessment and Plan: ------ see above. Patient does have strong pulses in his lower extremities but has a history of arterial disease seen on arterial dopplers. he completed cephazolin and they do not look Acutely affected. Antibiotics stopped. (4) Arterial insufficiency: Code(s): I77.1 - Stricture of artery Status: Chronic Assessment and Plan: ------ consulted. will hold aspirin since he has blood in his stool and a dropping hgb. (5) Bilateral lower extremity edema: Code(s): R60.0 - Localized edema Status: Acute Assessment and Plan: ------ Multifactorial, could be due to vasculitis, steroids, and cancer. No DVTs noted. pt also has wound on his coccyx which is unchanged and is getting triple care barrier antifungal cream. (6) Anemia: Code(s): D64.9 - Anemia, unspecified Status: Acute Assessment and Plan: -----Acute on chronic with dropping hgb. Ifob positive. Lovenox and aspirin stopped and protonix started. Will ask GI to see him. Hgb stable today and bp improved. suspect gastritis or ucler. trend hgb. (7) Hypertensive heart disease without congestive heart failure: Code(s): I11.9 - Hypertensive heart disease without heart failure Status: Acute Assessment and Plan: ------- blood pressure medications on hold. See above (8) Hyperlipidemia: Qualifiers: Hyperlipidemia type: unspecified Qualified Code(s): E78.5 - Hyperlipidemia, unspecified Code(s): E78.5 - Hyperlipidemia, unspecified Status: Acute Assessment and Plan: -------Patient is on pravastatin. (9) Acute hypokalemia: Code(s): E87.6 - Hypokalemia Status: Acute Assessment and Plan: ------ resolved, monitor. Oral potassium has been discontinued (10) Cancer, metastatic to bone: Code(s): C79.51 - Secondary malignant neoplasm of bone Status: Chronic Assessment and Plan: ----Follows with Dr. Sorenson. Dr Sorenson states if can not get insurance approval for cabazitaxel will probable move to hospice care (11) Sepsis: Code(s): A41.9 - Sepsis, unspecified organism Status: Acute Assessment and Plan: -----Improved with IV fluids, abx, and holding of lasix. Hypotension and elevated lactic acid likely due to over-diuresis and not actual infection. Will discontinue antibiotics at this time. Chest x-ray and UA does not show evidence of infection. (12) Elevated lactic acid level: Code(s): R79.89 - Other specified abnormal findings of blood chemistry Status: Acute Assessment and Plan: ----- Resolved. Pt bp is WNL. monitor. Additional Plan at this time [employer] is not allowing me to add any diagnoses.
--- NOTE | 2020-05-08 17:06 | WPDGICN ---
Assessment and Plan Assessment and plan (1) Anemia: Code(s): D64.9 - Anemia, unspecified Status: Acute Assessment and Plan: Patient has chronic anemia likely on the basis of chronic disease. Patient has known metastatic prostate cancer to bone. Abrupt decline in hemoglobin yesterday of uncertain nature. No obvious bleeding described. Plan is to continue monitor hemoglobin closely. Would try to avoid invasive testing on this patient. (2) Cellulitis of leg: Qualifiers: Laterality: unspecified laterality Qualified Code(s): L03.119 - Cellulitis of unspecified part of limb Code(s): L03.119 - Cellulitis of unspecified part of limb Status: Acute (3) Malignant neoplasm of prostate: Code(s): C61 - Malignant neoplasm of prostate Status: Acute (4) Cancer, metastatic to bone: Code(s): C79.51 - Secondary malignant neoplasm of bone Status: Chronic (5) Occult blood in stools: Code(s): R19.5 - Other fecal abnormalities Status: Acute Assessment and Plan: Occult blood noted in stool. No obvious bleeding noted. 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 Some likely contributes to occult blood loss. At this time would defer invasive testing given his low blood pressure and a general decline in overall general condition. We will follow and treat symptomatically at this time. 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 Likely remains present as this is a long-term process. Would continue to monitor and treat symptomatically at this point. GI Consult Note Consult date/time: 05/08/20 17:06 HPI: Urbano Guerra is a 69 year old male Seen in evaluation of the request of the hospitalist service. I have been asked see the patient because of Hemoccult-positive stools. Patient admitted to the hospital because of cellulitis to the bilateral feet. Patient has an underlying history of vasculitis. And chronic anemia. Patient with known history of prostate cancer metastatic to the bone. Decline in hemoglobin yesterday prompted transfusion 1 unit packed red blood cells. Patient denies any obvious blood in his stools. He was found to have Hemoccult-positive stools today. Patient known to my service underwent colonoscopy in June 2019. At that time mild terminal ileitis was identified felt to be secondary to an infection. He was also identified as having radiation colitis. Patient currently states is very washed out and weak. He has had some degree of hypotension. He denies any obvious blood in his stools. He denies abdominal pain. He is currently being treated and evaluated because of ongoing hypotension. Review of Systems Review of Systems: All systems reviewed & are unremarkable except as noted in HPI and below PMFSH Past Medical History Medical History Arterial insufficiency Cancer, metastatic to bone Chronic anemia Coronary artery disease involving n[place] coronary artery of nulato heart Decreased appetite Depression Diarrhea Hyperlipidemia Hypertensive heart disease without congestive heart failure Malignant neoplasm of prostate PVD (peripheral vascular disease) Surgical History Surgical History History of cardiac catheterization in 2002 with stents placed S/P total knee arthroplasty right knee S/P TURP October 2016 Family History Family History Father Family history of cardiovascular disease Malignant neoplasm of prostate Mother Family history of cardiovascular disease COPD (chronic obstructive pulmonary disease) CHF (congestive heart failure
[2020-05-08] MEDS: MAGNESIUM SULF 2 GM/WATER 50ML 2 GM/50 ML BAG IVPB (17:27)
[2020-05-08 19:48] LABS: Vancomycin Trough 10.7 ug/mL (10.0-20.0)
[2020-05-08] MEDS: PRAVASTATIN SODIUM 20 MG TABLET 80 MG PO (19:55)
[2020-05-09] VITALS (16 sets, daily range): BP systolic 92–125; BP diastolic 64–78; PULSE 69–110; RESP 12–22; TEMP 36–36.8; O2SAT 94–100
[2020-05-09 04:32] LABS: Mean Corpuscular HGB Conc 32.1 g/dl (32-36); Mean Corpuscular Hemoglobin 27.9 pg (26-34); Mean Corpuscular Volume 86.7 fl (80-100); Mean Platelet Volume 11.3 fl (7.4-10.4); Platelet Count Result 157 k/mm3 (150-375); Red Blood Count 3.23 M/mm3 (4.6-6.20); Red Cell Distribution Width 19.2 % (11.5-14.5); White Blood Count 14.3 K/mm3 (4.5-10.0)
[2020-05-09 04:54] LABS: Alanine Aminotransferase 32 U/L (4-50); Albumin Level 2.1 g/dL (3.5-5.1); Alkaline Phosphatase 467 U/L (38-126); Anion Gap 5 mmol/L (8-16); Aspartate Amino Transferase 41 U/L (17-59); Bilirubin,Total 0.6 mg/dL (0.2-1.3); Blood Urea Nitrogen 35 mg/dL (9-20); Calcium 7.4 mg/dL (8.4-10.2); Carbon Dioxide 25 mmol/L (22-30); Chloride 105 mmol/L (98-107); Estimated CRCL calculation 61 ml/min; Estimated Glomerular Filt Rate > 60; Glucose 85 mg/dL (75-110); Potassium 3.3 mmol/L (3.4-5.0); Sodium 135 mmol/L (137-145)
[2020-05-09 04:55] LABS: Complement C3 70 mg/dL (88-165)
[2020-05-09] MEDS: SODIUM CHLORIDE 0.9% IV 1,000 ML 50 ML IV CONT (05:27)
[2020-05-09] MEDS: FERROUS SULFATE 324 MG TABLET PO (09:47)
[2020-05-09] MEDS: POTASSIUM CHLORIDE 20 MEQ TABLET 40 MEQ PO (09:47)
[2020-05-09] MEDS: predniSONE 10 MG TABLET 30 MG PO (09:47)
[2020-05-09] MEDS: PANTOPRAZOLE 40 MG TABLET PO (09:47)
[2020-05-09] MEDS: METOPROLOL TARTRATE 12.5 MG TABLET PO ×2 (09:48→20:13)
[2020-05-09] MEDS: MEGESTROL ACETATE (*CHEMO) ORAL SUSP 40 MG/ML SYR 800 MG PO (09:49)
[2020-05-09] MEDS: POTASSIUM PHOS/SODIUM PHOS 250 MG TABLET PO ×3 (10:03→16:31)
--- NOTE | 2020-05-09 10:52 | PM.IMPN ---
Progress Note: A&P Assessment and Plan (1) Hypotension: Code(s): I95.9 - Hypotension, unspecified Status: Acute Assessment and Plan: ----- last blood pressure 104/70. Patient continues to run soft but doing better overall. Will stop the fluids and watch his blood pressure. If absolutely needed, may consider midodrine tomorrow so he can continue to keep his pain medication but also I do not want to fluid overload him every time he becomes hypotensive. Blood pressure medications on hold and pain meds have parameters. If his blood pressure remained stable without the fluids throughout the day, he may be transferred out of the IMU. (2) Vasculitis: Code(s): I77.6 - Arteritis, unspecified Status: Acute Assessment and Plan: ----- SILVIA positive 1:80 with speckled appearance. I have added additional workup such as complement, anti-dsDNA, anti Ballesteros, anti Ro in [place] and ANCA. Continue steroids. Cryglobin negative And hep C negative. UA neg for protein and albumin only midly low and likely not cause of swelling. Continue 30mg of prednisone daily at this time. Will need to follow-up with the history professor (3) Cellulitis of leg: Qualifiers: Laterality: unspecified laterality Qualified Code(s): L03.119 - Cellulitis of unspecified part of limb Code(s): L03.119 - Cellulitis of unspecified part of limb Status: Acute Assessment and Plan: ------ see above. Patient does have strong pulses in his lower extremities but has a history of arterial disease seen on arterial dopplers. I have started doxycycline since his white blood cell count went up after stopping IV antibiotics. Will cover for MRSA for secondary infection due to open wounds on his lower extremities. (4) Arterial insufficiency: Code(s): I77.1 - Stricture of artery Status: Chronic Assessment and Plan: ------ consulted. will hold aspirin since he has blood in his stool and a dropping hgb. (5) Bilateral lower extremity edema: Code(s): R60.0 - Localized edema Status: Acute Assessment and Plan: ------ Multifactorial, could be due to vasculitis, steroids, and cancer. No DVTs noted. pt also has wound on his coccyx which is unchanged and is getting triple care barrier antifungal cream. (6) Anemia: Code(s): D64.9 - Anemia, unspecified Status: Acute Assessment and Plan: -----Acute on chronic with dropping hgb. Ifob positive. Lovenox and aspirin stopped and protonix started. GI has seen him and recommends conservative therapy, I agree Since his hemoglobin has remained stable. Hgb stable today and bp improved. continue Protonix, last hemoglobin 9.0. (7) Hypertensive heart disease without congestive heart failure: Code(s): I11.9 - Hypertensive heart disease without heart failure Status: Acute Assessment and Plan: ------- Metoprolol restarted at a lower dose due to multiple PVCs. (8) Hyperlipidemia: Qualifiers: Hyperlipidemia type: unspecified Qualified Code(s): E78.5 - Hyperlipidemia, unspecified Code(s): E78.5 - Hyperlipidemia, unspecified Status: Acute Assessment and Plan: -------Patient is on pravastatin. (9) Acute hypokalemia: Code(s): E87.6 - Hypokalemia Status: Acute Assessment and Plan: ------ Replace today. (10) Cancer, metastatic to bone: Code(s): C79.51 - Secondary malignant neoplasm of bone Status: Chronic Assessment and Plan: ----Follows with Dr. Sorenson. Dr Sorenson states if can not get insurance approval for cabazitaxel will probable move to hospice care (11) Sepsis: Code(s): A41.9 - Sepsis, unspecified organism Status: Acute Assessment and Plan: -----Improved with IV fluids, abx, and holding of lasix. Hypotension and elevated lactic acid likely due
--- NOTE | 2020-05-09 12:19 | WPDGIPROGNO ---
Progress Note: A&P Additional Plan Patient alert and comfortable this morning. In fact more alert than yesterday. He denies abdominal pain. Denies bleeding. Physical exam reveals abdomen to be bowel sounds present soft nontender. Stool Hemoccult yesterday positive. Hemoglobin 9.0 is stable. Improved after transfusion. Impression 1. Occult blood in stool. 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 Likely this accounts for chronic occult blood in stool. Since no obvious bleeding and hemoglobin essentially stable plan no invasive testing at this time. 2. Metastatic prostate cancer. Followed by Oncology. Subjective Date/time seen: 05/09/20 12:19 Objective Data Vital Signs Vital Signs: Vital Signs - 24 hr 05/08/20 14:00 05/08/20 16:00 05/08/20 17:58 Temperature 97.1 F L Pulse Rate 96 80 78 Respiratory Rate 18 Blood Pressure 110/73 Pulse Oximetry 99 05/08/20 19:55 05/08/20 20:00 05/08/20 22:00 Temperature 98.0 F Pulse Rate 81 96 77 Respiratory Rate 20 Blood Pressure 117/75 Pulse Oximetry 99 05/09/20 00:00 05/09/20 02:00 05/09/20 04:00 Temperature 96.8 F L 97.9 F Pulse Rate 70 78 81 Respiratory Rate 12 20 Blood Pressure 125/72 92/64 L Pulse Oximetry 99 95 05/09/20 05:28 05/09/20 05:33 05/09/20 08:00 Temperature 97.7 F Pulse Rate 80 87 Respiratory Rate 20 Blood Pressure 101/69 104/70 Pulse Oximetry 98 05/09/20 08:55 05/09/20 09:48 05/09/20 10:00 Temperature Pulse Rate 109 H 110 H 73 Respiratory Rate Blood Pressure Pulse Oximetry Intake/Output Intake/Output: Intake & Output 05/06/20 05/07/20 05/08/20 05/09/20 23:59 23:59 23:59 23:59 Intake Total 2019 1340 2358.7 801.3 Output Total 300 550 300 Balance 4724 950 5698.7 801.3 Meds/Results Medications: Active Medications Generic Name Dose Route Start Last Admin Trade Name Freq PRN Reason Stop Dose Admin Acetaminophen 650 mg 05/08/20 16:46 Tylenol Tablet PO Q6H PRN Mild Pain (1-4) Or Fever Hydrocodone Bitart/Acetaminophen 1 tab 05/08/20 16:46 05/09/20 09:52 [place] 5-325 Mg PO 1 tab Q6H PRN Administration Pain Rated 5-10 Aspirin 325 mg 04/30/20 09:00 05/08/20 08:25 Aspirin PO 325 mg DAILY [facility] Administration Calcium Carbonate 500 mg 05/09/20 18:00 Os-Jonnie 500 +D Tablet PO Q12H [facility] Cholestyramine Resin 4 gm 04/30/20 00:07 Questran Powder Packs PO DAILY PRN Diarrhea Clotrimazole 1 applic 05/01/20 15:00 05/08/20 19:55 Lotrisone Cream TOPICAL 1 applic Q12HR [facility] Administration Diphenoxylate HCl/Atropine 1 tablet 04/30/20 00:07 Lomotil Tab 2.5 Mg PO TID PRN Diarrhea Doxycycline Hyclate 100 mg 05/09/20 09:00 Vibramycin Tab PO Q12HR [facility] Ferrous Sulfate 324 mg 04/30/20 09:00 05/09/20 09:47 Ferrous Sulfate PO 324 mg DAILY [facility] Administration Ketorolac Tromethamine 15 mg 05/06/20 13:39 05/08/20 11:58 Toradol Inj IV PUSH 15 mg Q6H PRN Administration Pain 4-6alternate with tylenol Megestrol Acetate 800 mg 05/02/20 09:00 05/09/20 09:49 Megace Oral Susp PO 800 mg QAM [facility] Administration Metoprolol Tartrate 12.5 mg 05/07/20 09:45 05/09/20 09:48 Lopressor PO 12.5 mg Q12HR [facility] Administration Miconazole Nitrate 1 applic 05/01/20 15:00 05/08/20 19:57 Aloe [place] TOPICAL 1 applic Q12HR [facility] Administration Morphine Sulfate 4 mg 05/05/20 16:17 Morphine Sulfate Inj IV PUSH Q2H PRN Pain Rated 7-10 Multi-Ingred Cream/Lotion/Oil/Oint 1 applic 05/05/20 09:00 05/08/20 08:26 Minerin Creme TOPICAL 1 applic QAM [facility] Administration Pantoprazole Sodium 40 mg 05/07/20 21:00 05/09/20 09:47 Protonix PO 40 mg Q12HR [facility] Administration Pravastatin Sodium 80 mg 04/30/20 00:20 05/08/20 19:55 Pravastatin Sodium PO 80 mg HS [facility] Administration Pre
[2020-05-09] MEDS: SILVERGEL (ELTA) 45 ML 1 APPLIC TOPICAL (13:01)
[2020-05-09] MEDS: EUCERIN CREAM 120 GM JAR 1 APPLIC TOPICAL (13:02)
[2020-05-09] MEDS: BETAMETHASONE/CLOTRIMAZOLE CR 15 GM TUBE 1 APPLIC TOPICAL ×2 (13:19→20:14)
[2020-05-09] MEDS: KETOROLAC 15 MG/ML VIAL (*BKC) IV PUSH (15:22)
--- NOTE | 2020-05-09 17:57 | WPDONCPN ---
Progress Note: A/P - Additional Plan Metastatic prostate cancer with progressive disease. CT scan finding reviewed. Recommended hospice care. Anorexia and weight loss. Patient is on Megace. Bilateral lower extremity edema and cellulitis. Patient has improved with antibiotics and diuretics. Multifactorial anemia. GI input noted. Continue oral iron and vitamin B12. Hemoglobin has improved after blood transfusion. - Time Spent With Patient Total time spent is greater than 50% in coordination of care (as documented) at patient's floor/unit and/or counseling patient: 15 - 25 minutes Subjective Interval history: Metastatic prostate cancer Bilateral lower extremity edema and cellulitis Anemia Review of Systems - Review of Systems Patient remains tired and weak but claimed that he is feeling better. He has been eating better. Denies any bleeding and bruising. Bilateral lower extremity swelling has much improved. Pain has also improved. - Neurologic Reports system reviewed and no additional complaints, except as documented, Reports hearing normal, Reports weakness, Denies numbness Exam Vital signs: Lili Cortez. Assessment of coma and impaired consciousness. A practical scale. Lancet 1974; 2:81-4. Narrative: Lungs are clear to auscultation bilaterally Cardiovascular regular rate rhythm no murmurs Abdomen soft nontender nondistended bowel sounds are positive Extremities is improvement in lower extremity edema and vasculitis - Constitutional no acute distress, cooperative - Routine HEENT Exam Head: Present: normal inspection - Routine Neck Exam Present: full ROM - Routine Cardiovascular Exam Cardiovascular: Present: RRR - Routine Abdominal Exam Present: normal bowel sounds, soft. Absent: mass, tenderness - Routine Extremities Exam Present: normal capillary refill - Routine Neurological Exam Present: alert - Routine Psychiatric Exam Absent: normal affect PN: Objective Data - Labs CBC & Chem 7: 05/09/20 04:05 05/09/20 04:05 Labs: Laboratory Results - last 24 hr 05/08/20 05/09/20 05/09/20 18:52 04:05 04:05 WBC 14.3 H RBC 3.23 L Hgb 9.0 L Hct 28.0 L MCV 86.7 MCH 27.9 MCHC 32.1 RDW 19.2 H Plt Count 157 MPV 11.3 H Sodium Potassium Chloride Carbon Dioxide Anion Gap BUN Creatinine Estim Creat Clear Calc Estimated GFR Glucose Calcium Total Bilirubin Direct Bilirubin AST ALT Alkaline Phosphatase C-Reactive Protein Total Protein Albumin Vancomycin Trough 10.7 Complement C3 70 L Complement C4 18.3 05/09/20 04:05 WBC RBC Hgb Hct MCV MCH MCHC RDW Plt Count MPV Sodium 135 L Potassium 3.3 L Chloride 105 Carbon Dioxide 25 Anion Gap 5 L BUN 35 H Creatinine 0.80 Estim Creat Clear Calc 61 Estimated GFR > 60 Glucose 85 Calcium 7.4 L Total Bilirubin 0.6 Direct Bilirubin 0.0 AST 41 ALT 32 Alkaline Phosphatase 467 H C-Reactive Protein 14.0 H Total Protein 5.0 L Albumin 2.1 L Vancomycin Trough Complement C3 Complement C4
[2020-05-09] MEDS: ACETAMINOPHEN 325 MG TABLET 650 MG PO (20:12)
[2020-05-10] VITALS (10 sets, daily range): BP systolic 99–110; BP diastolic 70–73; PULSE 80–97; RESP 16–20; TEMP 36.6–36.8; O2SAT 97–99
[2020-05-10 04:36] LABS: Hematocrit 27.1 % (42.0-52.0); Hemoglobin 8.6 g/dL (14.0-18.0); Mean Corpuscular HGB Conc 31.7 g/dl (32-36); Mean Corpuscular Hemoglobin 27.7 pg (26-34); Mean Corpuscular Volume 87.4 fl (80-100); Platelet Count Result 175 k/mm3 (150-375); White Blood Count 13.9 K/mm3 (4.5-10.0)
[2020-05-10 04:49] LABS: Anion Gap 6 mmol/L (8-16); Blood Urea Nitrogen 33 mg/dL (9-20); Calcium 6.9 mg/dL (8.4-10.2); Carbon Dioxide 23 mmol/L (22-30); Chloride 106 mmol/L (98-107); Estimated CRCL calculation 69 ml/min; Estimated Glomerular Filt Rate > 60; Glucose 97 mg/dL (75-110); Magnesium 1.9 mg/dL (1.6-2.3); Phosphorus 3.2 mg/dL (2.5-4.5); Potassium 3.6 mmol/L (3.4-5.0); Sodium 135 mmol/L (137-145)
[2020-05-10] MEDS: KETOROLAC 15 MG/ML VIAL (*BKC) IV PUSH ×2 (04:58→11:17)
--- NOTE | 2020-05-10 07:35 | PCOTNOTE ---
Attempted to see Patient for OT therapy services at this time. Patient is physically very upset, verbalized I'm dying, I just want to go home, just leave me alone, you can't help me. Patient was offered any assistance and declined, asked me to leave his room. Patients RN was notified and will follow up.
[2020-05-10] MEDS: MEGESTROL ACETATE (*CHEMO) ORAL SUSP 40 MG/ML SYR 800 MG PO (08:37)
[2020-05-10] MEDS: POTASSIUM PHOS/SODIUM PHOS 250 MG TABLET PO (08:46)
[2020-05-10] MEDS: predniSONE 10 MG TABLET 30 MG PO (08:46)
[2020-05-10] MEDS: METOPROLOL TARTRATE 12.5 MG TABLET PO (08:46)
[2020-05-10] MEDS: BETAMETHASONE/CLOTRIMAZOLE CR 15 GM TUBE 1 APPLIC TOPICAL (08:47)
[2020-05-10] MEDS: EUCERIN CREAM 120 GM JAR 1 APPLIC TOPICAL (08:48)
[2020-05-10] MEDS: SILVERGEL (ELTA) 45 ML 1 APPLIC TOPICAL (08:48)
--- NOTE | 2020-05-10 09:39 | WPDCDIQUERY2 ---
CDI Query Clarification Request - Sepsis has been documented. - Improved with IV fluids, abx, and holding of lasix. Hypotension and elevated lactic acid likely due to over-diuresis and not actual infection. Will discontinue antibiotics at this time. Chest x-ray and UA does not show evidence of infection. documented - antibiotics discontinued yesterday and white count went up to 14,000 doxycycline was started documented Please clarify if sepsis was ruled in or ruled out.
--- NOTE | 2020-05-10 09:52 | PCDIET ---
Nutrition Follow-Up Complete: Nutrition Diagnosis: Increased Kcal needs related to prostate cancer as evidenced by wounds/poor po intake. Nutrition Goal: Adequate Intake of at least 75% of meals/supplements Goal in progress. Average intake since 05/06/20 has been 50% of recorded meals. Pt current nutrition is regular diet with [place] and Ensure Enlive BID. Nutrition recommendation: Agree Last recorded weight is 56.3 kg. Recommend re-weighing patient. Bowel Motility: Last documented BM on 05/09/20. Labs Reviewed: Hgb (8.6), Hct (27.1), BUN (33), Na (135), Alb (2.1), Zay Ca (8.42) Meds Noted: [place], Oscal 500 + D, Questran, Ferrous Sulfate, Toradol, Megace, Protonix, Prednisone, K-Phos Additional Notes: Patient/family considering hospice care. Coccyx with ulcer; BLE with venous stasis ulcers. Recommend continuing supplementation. Nutrition Monitoring and Evaluation: Follow up in 3 days.
--- NOTE | 2020-05-10 10:09 | WPDGIPROGNO ---
Progress Note: A&P Additional Plan Patient alert comfortable at present. No obvious GI bleeding evident. Physical exam reveals abdomen to be benign . Labs reveal hemoglobin 8.6, hematocrit 27.1 stable. Impression 1. Chronic anemia. 2. Occult blood in stool. 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 3. Metastatic prostate cancer. Hospice being considered. No further GI workup anticipated at this time. Subjective Date/time seen: 05/10/20 10:09 Objective Data Vital Signs Vital Signs: Vital Signs - 24 hr 05/09/20 12:00 05/09/20 16:00 05/09/20 19:14 Temperature 97.6 F 97.4 F L 98.2 F Pulse Rate 76 78 77 Respiratory Rate 22 H 20 16 Blood Pressure 100/65 109/78 99/64 L Pulse Oximetry 98 98 100 05/09/20 20:00 05/09/20 20:13 05/09/20 22:00 Temperature Pulse Rate 90 98 87 Respiratory Rate 16 Blood Pressure Pulse Oximetry 100 05/09/20 23:09 05/10/20 00:00 05/10/20 02:00 Temperature 97.7 F Pulse Rate 88 84 84 Respiratory Rate 20 16 Blood Pressure 120/69 Pulse Oximetry 94 98 05/10/20 04:00 05/10/20 06:00 05/10/20 08:00 Temperature 97.9 F 98.2 F Pulse Rate 82 97 92 Respiratory Rate 20 18 Blood Pressure 110/70 99/70 L Pulse Oximetry 99 99 05/10/20 08:46 Temperature Pulse Rate 90 Respiratory Rate Blood Pressure Pulse Oximetry Intake/Output Intake/Output: Intake & Output 05/07/20 05/08/20 05/09/20 05/10/20 23:59 23:59 23:59 23:59 Intake Total 1340 2358.7 1281.3 0 Output Total 550 300 150 100 Balance 790 2058.7 1131.3 -100 Meds/Results Medications: Active Medications Generic Name Dose Route Start Last Admin Trade Name Freq PRN Reason Stop Dose Admin Acetaminophen 650 mg 05/08/20 16:46 05/09/20 20:12 Tylenol Tablet PO 650 mg Q6H PRN Administration Mild Pain (1-4) Or Fever Hydrocodone Bitart/Acetaminophen 1 tab 05/08/20 16:46 05/10/20 08:29 Mcdonald 5-325 Mg PO 1 tab Q6H PRN Administration Pain Rated 5-10 Aspirin 325 mg 04/30/20 09:00 05/08/20 08:25 Aspirin PO 325 mg DAILY [facility] Administration Calcium Carbonate 500 mg 05/09/20 18:00 05/10/20 04:59 Os-Jonnie 500 +D Tablet PO Not Given Q12H [facility] Cholestyramine Resin 4 gm 04/30/20 00:07 Questran Powder Packs PO DAILY PRN Diarrhea Clotrimazole 1 applic 05/01/20 15:00 05/10/20 08:47 Lotrisone Cream TOPICAL 1 applic Q12HR [facility] Administration Diphenoxylate HCl/Atropine 1 tablet 04/30/20 00:07 Lomotil Tab 2.5 Mg PO TID PRN Diarrhea Doxycycline Hyclate 100 mg 05/09/20 09:00 05/09/20 20:22 Vibramycin Tab PO Not Given Q12HR [facility] Ferrous Sulfate 324 mg 04/30/20 09:00 05/09/20 09:47 Ferrous Sulfate PO 324 mg DAILY [facility] Administration Ketorolac Tromethamine 15 mg 05/06/20 13:39 05/10/20 04:58 Toradol Inj IV PUSH 15 mg Q6H PRN Administration Pain 4-6alternate with tylenol Megestrol Acetate 800 mg 05/02/20 09:00 05/10/20 08:37 Megace Oral Susp PO 800 mg QAM [facility] Administration Metoprolol Tartrate 12.5 mg 05/07/20 09:45 05/10/20 08:46 Lopressor PO 12.5 mg Q12HR [facility] Administration Miconazole Nitrate 1 applic 05/01/20 15:00 05/10/20 08:47 Aloe [place] TOPICAL 1 applic Q12HR [facility] Administration Morphine Sulfate 4 mg 05/05/20 16:17 Morphine Sulfate Inj IV PUSH Q2H PRN Pain Rated 7-10 Multi-Ingred Cream/Lotion/Oil/Oint 1 applic 05/05/20 09:00 05/10/20 08:48 Minerin Creme TOPICAL 1 applic QAM [facility] Administration Pantoprazole Sodium 40 mg 05/07/20 21:00 05/10/20 08:58 Protonix PO Not Given Q12HR [facility] Pravastatin Sodium 80 mg 04/30/20 00:20 05/09/20 20:22 Pravastatin Sodium PO Not Given HS [facility] Prednisone 30 mg 05/05/20 08:00 05/10/20 08:46 Prednisone PO 30 mg DAILY@0800 [facility] Administration Silver Nitrate 1 applic 05/04/20 09:00 05/10/20 08:48 Silvergel TOPICAL 1 applic DAILY [facility]
--- NOTE | 2020-05-10 11:15 | PCPTNOTE ---
Patient refused PT today.
--- NOTE | 2020-05-10 12:05 | PM.DS ---
DS: Admitting Diagnosis Admitting Diagnosis Admitting Diagnosis: Cellulitis of unspecified part of limb DS: Discharge Diagnosis Discharge Diagnosis (1) Hypotension: Code(s): I95.9 - Hypotension, unspecified Status: Acute Assessment and Plan: ----- last blood pressure 110/73, improving. Patient continues to run soft but doing better overall. (2) Vasculitis: Code(s): I77.6 - Arteritis, unspecified Status: Acute Assessment and Plan: ----- SILVIA positive 1:80 with speckled appearance. 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 I have given the patient options since he is going on hospice and plan is to continue the steroids. (3) Cellulitis of leg: Qualifiers: Laterality: unspecified laterality Qualified Code(s): L03.119 - Cellulitis of unspecified part of limb Code(s): L03.119 - Cellulitis of unspecified part of limb Status: Acute Assessment and Plan: ------ see above. Patient does have strong pulses in his lower extremities but has a history of arterial disease seen on arterial dopplers. (4) Arterial insufficiency: Code(s): I77.1 - Stricture of artery Status: Chronic (5) Bilateral lower extremity edema: Code(s): R60.0 - Localized edema Status: Acute (6) Anemia: Code(s): D64.9 - Anemia, unspecified Status: Acute Assessment and Plan: (7) Hypertensive heart disease without congestive heart failure: Code(s): I11.9 - Hypertensive heart disease without heart failure Status: Acute Assessment and Plan: ------- Metoprolol restarted at a lower dose due to multiple PVCs. (8) Hyperlipidemia: Qualifiers: Hyperlipidemia type: unspecified Qualified Code(s): E78.5 - Hyperlipidemia, unspecified Code(s): E78.5 - Hyperlipidemia, unspecified Status: Acute (9) Acute hypokalemia: Code(s): E87.6 - Hypokalemia Status: Acute (10) Cancer, metastatic to bone: Code(s): C79.51 - Secondary malignant neoplasm of bone Status: Chronic Assessment and Plan: discharging on hospice. (11) Sepsis: Code(s): A41.9 - Sepsis, unspecified organism Status: Acute (12) Elevated lactic acid level: Code(s): R79.89 - Other specified abnormal findings of blood chemistry Status: Acute DS: Summary Hospital Course Reason for hospitalization: Vasculitis/cellulitis Hospital Course: Patient is 69-year-old male with a history of stage IV prostate cancer who presented to the emergency room for lower extremity swelling and rash. Patient was evaluated in the ER and started on antibiotics as well as steroids for cellulitis and vasculitis. He had a long hospitalization which was complicated by a rising white count, hypotension, and uncontrolled pain. His vasculitis, however, improved throughout his stay. 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 He was given a long steroid taper. Toward the end of his stay, the patient did talk to Dr. Sorenson and hospice and decided to be discharged on hospice. He is going to follow up with hospice for all of his needs. Status at Discharge Overall status at discharge: patient is not back to baseline Time Spent with Patient Time attestation: Total time spent providing and/or coordinating discharge services:40 min Time spent: Greater than 30 minutes Exam Narrative: Exam Narrative: General: Elderly patient resting comfortably in the bed in no acute distress. HEENT: normocephalic Neck: supple Neuro: Alert and oriented x4 CV:RRR Resp:Decreased breath sounds bilaterally, but overall clear Abd: Soft, non distended. no pain to palpation today. + BS Back: pressure wound on sacrum/coccyx with open area covered with mepliex Extremities: Vasculitis like petechiae rash has improved on bilateral legs. Legs improved
--- NOTE | 2020-05-10 15:01 | WPDONCPN ---
Progress Note: A/P - Additional Plan 1. 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 Patient has failed several therapies, most recently Taxotere. CT scan date 05/06/2020 showed extensive liver mets, widespread osseous disease disease, and new ascites/anasarca. His performance status is 3 and no other treatment options are available. Currently on hydrocodone and Toradol for pain control but keeps low blood pressure. Agreed to see hospice and has consult today at 1PM. Pt. wishes to go home. 2. Anemia. This could be related to progressive disease and possible GI bleed given positive guaiac. Continue PPI. Saw GI and +guaiac attributed to prior radiation enteritis rather than acute ulcer. He received 1U PRBC for Hgb 6.7 and is 8.6 currently. He continues oral iron. 3. Vasculitis. Currently on prednisone. - Time Spent With Patient Total time spent is greater than 50% in coordination of care (as documented) at patient's floor/unit and/or counseling patient: 15 - 25 minutes (Offered support and reassurance about hospice) Subjective Interval history: 69 yo WM who has been seeing Dr. Sorenson for metastatic prostate cancer and has received multiple lines of treatment, most recently Taxotere. He presented to ER with weepy bilateral LE edema concerning for cellulitis and subsequently also found to have vasculitis, remains on prednisone. Additionally, LE arterial Doppler was suggestive of occlusion of Rt anterior tibial artery. His swelling has significantly improved since admission. He has wound care to his lower extremities. CT scan c/w metastatic disease to liver and bone. He continues to have diffuse bone pain but is not getting adequate pain control on his current regimen due to low blood pressure concerns or oversedation. He is currently on Toradol and [place]. Previously discussed hospice. Review of Systems - Constitutional Reports anorexia, Reports weakness - Cardiovascular Reports leg swelling, Denies chest pain, Denies shortness of breath - Respiratory Denies cough, Denies dyspnea - Gastrointestinal Denies abdominal pain Comments: No BM today - Genitourinary Genitourinary: Reports decreased urination - Musculoskeletal Reports back pain, Reports joint pain - Integumentary/Breasts Skin/Breast: Reports unusual bruising Comments: forearms - Neurologic Reports system reviewed and no additional complaints, except as documented, Reports hearing normal, Reports weakness, Denies numbness Exam - Constitutional mild distress, moderate distress, cooperative Comments: With movement, facial grimacing - Routine HEENT Exam Head: Present: normal inspection - Routine Neck Exam Present: full ROM - Routine Cardiovascular Exam Cardiovascular: Present: RRR - Routine Abdominal Exam Present: normal bowel sounds, soft. Absent: mass, tenderness - Routine Extremities Exam Present: normal capillary refill - Detailed Lower Extremity Exam Ankle: Bilateral swelling Foot/Toes: Bilateral swelling - Routine Skin Exam Present: ecchymosis Comments: forearms - Routine Neurological Exam Present: alert - Routine Psychiatric Exam Absent: normal affect PN: Objective Data - Labs CBC & Chem 7: 05/10/20 04:14 05/10/20 04:14 Labs: Laboratory Results - last 24 hr 05/10/20 05/10/20 04:14 04:14 WBC 13.9 H RBC 3.10 L Hgb 8.6 L Hct 27.1 L MCV 87.4 MCH 27.7 MCHC 31.7 L RDW 19.0 H Plt Count 175 MPV 12.0 H Sodium 135 L Potassium 3.6 Chloride 106 Carbon Dioxide 23 Anion Gap 6 L BUN 33 H Creatinine 0.70 Estim Creat Clear Calc 69 Estimated GFR > 60 Glucose 97 Calcium 6.9 L Phosphorus 3.2 Magnesium 1.9
[2020-05-12 10:01] LABS: ANCA Screen Negative (Negative)
[2020-05-12 10:20] LABS: SS-A >8.0; SS-B <1.0
--- NOTE | 2020-05-12 11:13 | PC.NURSE ---
ANCA is negative. Antismith <1.0 SSA is elevated at 8. Faxed to Dr. Perez. RYAN Claire aware. SSB is WNL Anti-DNA- <1
--- NOTE | 2020-05-16 15:23 | PC.NURSE ---
Blood cx are negative.
== END 2020-05-10 17:03 | disposition hospice, home (50) | DRG 872 ==
LOC: ANHED 16:04 → ANH3MEDSUR 17:29 → ANHIMU 05-06 14:38
PROVIDERS: Internal Medicine; Admitting Provider Family Medicine; Emergency Provider Emergency Medicine; PCP Family Medicine; Visit Provider Physician Assistant
DX: A41.9 Sepsis, unspecified organism; L03.115 Cellulitis of right lower limb; C77.2 Secondary and unspecified malignant neoplasm of intra-abdominal lymph nodes; C79.51 Secondary malignant neoplasm of bone; C78.7 Secondary malignant neoplasm of liver and intrahepatic bile duct; Z68.1 Body mass index [BMI] 19.9 or less, adult; L03.116 Cellulitis of left lower limb; L89.159 Pressure ulcer of sacral region, unspecified stage; I95.9 Hypotension, unspecified; R63.0 Anorexia; R63.4 Abnormal weight loss; Z85.46 Personal history of malignant neoplasm of prostate; R79.89 Other specified abnormal findings of blood chemistry; I77.6 Arteritis, unspecified; I77.1 Stricture of artery; R60.0 Localized edema; D64.9 Anemia, unspecified; I25.10 Atherosclerotic heart disease of native coronary artery without angina pectoris; I11.9 Hypertensive heart disease without heart failure; E78.5 Hyperlipidemia, unspecified; E87.6 Hypokalemia; I73.9 Peripheral vascular disease, unspecified; F17.210 Nicotine dependence, cigarettes, uncomplicated; R19.5 Other fecal abnormalities; Z96.651 Presence of right artificial knee joint; Z79.82 Long term (current) use of aspirin; Z79.899 Other long term (current) drug therapy; Z88.8 Allergy status to other drugs, medicaments and biological substances; Z95.5 Presence of coronary angioplasty implant and graft
CPT/HCPCS: 36415; 36430; 71045; 74176; 80048; 80053; 80074; 80076; 80202; 81001; 82274; 82595; 83605; 83735; 83880; 84100; 85014; 85018; 85025; 85027; 85610; 85652; 85730; 86021; 86038; 86039; 86140; 86160; 86225; 86235; 86703; 86850; 86900; 86901; 86920; 87040; 93306; 93925; 93970; 96365; 96372; 96375; 96376; 97110; 97116; 97161; 97165; 97530; 97535; 99285; A9270; G0378; G0432; J0131; J0690; J1650; J1885; J1940; J2270; J2543; J3370; J3420; J3475; J7030; J7040; J7050; J7512; P9016